=== PATIENT | female | born 1940 | race African-American/Black ===

== ENCOUNTER 2020-03-15 10:31 | Emergency (ER) | payer MEDICARE, OTHER ==
[~2020-03-15] VITALS: Ht 160 cm; Wt 66.0 kg
[~2020-03-15 10:31] MED LIST: AMLO10TA80 PO; ATEN50TA PO; CLON0.3T4; CYCL-108; HYDR12.54 PO; IBUP-779 PO; JARDIANCE; METF-414; NIFE-72
[2020-03-15] MEDS ORDERED: ACETAMINOPHEN 500MG TABLET PO ONE (11:15)
[2020-03-15] MEDS ORDERED: IBUPROFEN 600MG TABLET PO ONE (11:15)
[2020-03-15] MEDS ORDERED: TRAM50TA3 PO (12:33)
[2020-03-15 13:01] VITALS: BP 119/75
== END 2020-03-15 13:01 | disposition home or self-care (01) ==
LOC: ER 10:41
DX: S16.1XXA Strain of muscle, fascia and tendon at neck level, initial encounter (principal); M25.511 Pain in right shoulder; M62.838 Other muscle spasm; I10 Essential (primary) hypertension; E11.9 Type 2 diabetes mellitus without complications; W01.0XXA Fall on same level from slipping, tripping and stumbling without subsequent striking against object, initial encounter; Y93.01 Activity, walking, marching and hiking; Y92.018 Other place in single-family (private) house as the place of occurrence of the external cause; Z79.899 Other long term (current) drug therapy; Z79.84 Long term (current) use of oral hypoglycemic drugs
CPT/HCPCS: 72040; 73030; 99284

== ENCOUNTER 2021-07-30 11:33 | Inpatient (IN) | payer MEDICARE ==
[~2021-07-30] VITALS: Ht 180.3 cm; Wt 78.5 kg
[~2021-07-30 11:33] MED LIST changes: +AMLO5TAB4 MT; +GABA-529 PO; -JARDIANCE; -METF-414; +TRAM50TA3 PO
[2021-07-30] MEDS ORDERED: ACETAMINOPHEN 500MG TABLET PO ONE (15:15)
[2021-07-30 15:54] LABS: BASOPHILS % 1.1 % (0.0-2.0); EOSINOPHILS % 0.8 % (0.0-5.0); HEMATOCRIT. 37.4 % (36.0-48.0); HEMOGLOBIN. 12.5 g/dL (12.0-16.0); LYMPHOCYTES % 14.3 % (20.0-50.0); MEAN CORPUSCULAR HEMOGLOBIN 33.5 pg (28.0-32.0); MEAN CORPUSCULAR VOLUME 100.5 fL (81.0-99.0); MEAN PLATELET VOLUME 10.2 fl (7.4-10.4); MONOCYTES % 7.8 % (2.0-8.0); PLATELET 130 x1000/uL (130-400); RED BLOOD CELL COUNT 3.72 mill/uL (4.2-5.4)
[2021-07-30 16:01] LABS: CHLORIDE 111 mEq/L (98-107)
[2021-07-30] MEDS ORDERED: DOCUSATE SODIUM 100MG CAPSULE PO PRN (18:15)
[2021-07-30] MEDS ORDERED: ONDANSETRON HCL 4MG/2ML INJ IV PRN (18:15)
[2021-07-30] MEDS ORDERED: IPRATROPIUM/ALBUTEROL 0.5-3(2.5)MG/3ML NEB HHN PRN (18:15)
[2021-07-30] MEDS ORDERED: GUAIFENESIN 200MG/10ML SUGAR FREE UDC PO PRN (18:15)
[2021-07-30] MEDS ORDERED: MAGNESIUM/ALUMINUM HYDROXIDE/SIMETHICONE 30ML UDC PO PRN (18:15)
[2021-07-30] MEDS ORDERED: DIPHENHYDRAMINE 50MG/ML VIAL IV PRN (18:15)
[2021-07-30 18:43] LABS: CLARITY URINE CLEAR (CLEAR); COLOR URINE YELLOW (YELLOW); KETONES URINE NEGATIVE (NEGATIVE); LEUKOCYTE ESTERASE URINE NEGATIVE (NEGATIVE); NITRITE URINE NEGATIVE (NEGATIVE); OCCULT BLOOD URINE NEGATIVE (NEGATIVE); PH URINE 6.5 (4.5-8.0); PROTEIN URINE NEGATIVE (NEGATIVE); SPECIFIC GRAVITY URINE 1.015 (1.005-1.030); UROBILINOGEN URINE 0.2 E.U./dL (0.2-1.0)
[2021-07-30] MEDS: MORPHINE SULFATE 2 MG/ML CPJ (NOT FOR IM USE) IV PRN (20:56)
[2021-07-30 21:00] VITALS: BP 179/73
[2021-07-30] MEDS: CLONIDINE 0.1MG TABLET PO PRN (21:05)
[2021-07-31] MEDS: MORPHINE SULFATE 2 MG/ML CPJ (NOT FOR IM USE) IV PRN ×3 (01:15→11:04)
[2021-07-31 03:25] VITALS: BP 164/69
[2021-07-31 06:21] VITALS: BP 159/66
[2021-07-31 08:00] VITALS: BP 165/71
[2021-07-31] MEDS ORDERED: ENOXAPARIN 40MG/0.4ML SYR SUBCUT SCH (09:00)
[2021-07-31] MEDS ORDERED: HYDROCODONE/ACETAMINOPHEN 5/325MG TABLET PO PRN ×2 (10:45→11:00)
[2021-07-31 11:38] LABS: BASOPHILS % 0.8 % (0.0-2.0); EOSINOPHILS % 2.4 % (0.0-5.0); HEMATOCRIT. 32.5 % (36.0-48.0); HEMOGLOBIN. 10.8 g/dL (12.0-16.0); LYMPHOCYTES % 13.7 % (20.0-50.0); MEAN CORPUSCULAR HEMOGLOBIN 33.4 pg (28.0-32.0); MEAN CORPUSCULAR VOLUME 100.7 fL (81.0-99.0); MEAN PLATELET VOLUME 11.2 fl (7.4-10.4); MONOCYTES % 11.9 % (2.0-8.0); NEUTROPHILS % 71.2 % (40.0-76.0); PLATELET 103 x1000/uL (130-400); RED BLOOD CELL COUNT 3.23 mill/uL (4.2-5.4); RED CELL DISTRIBUTION WIDTH 14.1 % (11.6-14.6)
[2021-07-31 12:00] VITALS: BP 172/70
[2021-07-31 12:01] LABS: CHLORIDE 107 mEq/L (98-107)
[2021-07-31 12:16] LABS: CREATINE KINASE 85 IU/L (26-192); HDL CHOLESTEROL 60 mg/dL (40-59); LDL CHOLESTEROL 53 mg/dL (5-100)
[2021-07-31] MEDS: MAGNESIUM OXIDE 400MG TABLET PO SCH (12:21)
[2021-07-31] MEDS ORDERED: OXYCODONE HCL 5MG TABLET PO PRN ×2 (14:45→19:00)
[2021-07-31 16:00] VITALS: BP 177/75
[2021-07-31] MEDS: CLONIDINE 0.1MG TABLET PO PRN (17:12)
[2021-07-31] MEDS ORDERED: NALOXONE HCL 0.4MG/ML VIAL IV PRN (19:00)
[2021-07-31 20:00] VITALS: BP 146/63
[2021-08-01] VITALS (8 sets, daily range): BP systolic 133–162; BP diastolic 50–91
[2021-08-01] MEDS: OXYCODONE HCL 5MG TABLET PO PRN ×3 (05:06→20:39)
[2021-08-01] MEDS: CLONIDINE 0.1MG TABLET PO PRN (05:07)
[2021-08-01] MEDS: DIPHENHYDRAMINE 25MG CAPSULE PO PRN ×2 (08:26→14:36)
[2021-08-01] MEDS: MAGNESIUM OXIDE 400MG TABLET PO SCH (08:26)
[2021-08-01] MEDS ORDERED: THIAMINE HCL 100MG TABLET PO SCH (09:15)
[2021-08-01] MEDS ORDERED: FOLIC ACID 1MG TABLET PO SCH (09:15)
== END 2021-08-01 23:21 | DRG 563 ==
LOC: ER 11:33 → ENRESERV 17:50 → 6EST 20:21
PROVIDERS: ADMIT Specialist; ATTEND Specialist
PROC: 2W3QX1Z Immobilization of Right Lower Leg using Splint (ICD-10-PCS; principal; 2021-07-30)
DX: S82.401A Unspecified fracture of shaft of right fibula, initial encounter for closed fracture (principal); E44.0 Moderate protein-calorie malnutrition; I69.351 Hemiplegia and hemiparesis following cerebral infarction affecting right dominant side; S80.821A Blister (nonthermal), right lower leg, initial encounter; E11.9 Type 2 diabetes mellitus without complications; E83.42 Hypomagnesemia; E87.8 Other disorders of electrolyte and fluid balance, not elsewhere classified; I10 Essential (primary) hypertension; D64.9 Anemia, unspecified; M19.90 Unspecified osteoarthritis, unspecified site; G62.9 Polyneuropathy, unspecified; K74.60 Unspecified cirrhosis of liver; Z79.899 Other long term (current) drug therapy; Z82.49 Family history of ischemic heart disease and other diseases of the circulatory system; Z82.3 Family history of stroke; Z83.3 Family history of diabetes mellitus; Z87.891 Personal history of nicotine dependence; Z88.0 Allergy status to penicillin; Z68.37 Body mass index [BMI] 37.0-37.9, adult; Z91.81 History of falling; X58.XXXA Exposure to other specified factors, initial encounter; Y99.8 Other external cause status; W19.XXXA Unspecified fall, initial encounter; Y93.89 Activity, other specified; Y92.098 Other place in other non-institutional residence as the place of occurrence of the external cause; Z88.8 Allergy status to other drugs, medicaments and biological substances
CPT/HCPCS: 36415; 71045; 72170; 73590; 73600; 80053; 80061; 81003; 82550; 83735; 84443; 84484; 85025; 92610; 93005; 97162; 97166; 97530; 97535; 99285; J1200; J2270; Q0163

== ENCOUNTER 2021-08-01 23:10 | Inpatient (IN) | payer MEDICARE ==
[~2021-08-01] VITALS: Ht 182.9 cm; Wt 79.4 kg
[2021-08-01 23:30] VITALS: BP 148/63
[2021-08-02] MEDS ORDERED: GUAIFENESIN 200MG/10ML SUGAR FREE UDC PO PRN (00:15)
[2021-08-02] MEDS ORDERED: ONDANSETRON HCL 4MG TABLET PO PRN (00:15)
[2021-08-02] MEDS ORDERED: IPRATROPIUM/ALBUTEROL 0.5-3(2.5)MG/3ML NEB HHN PRN (00:15)
[2021-08-02] MEDS ORDERED: NALOXONE HCL 0.4 MG/ML 1ML VIAL IV PRN (00:15)
[2021-08-02] MEDS: DIPHENHYDRAMINE 25MG CAPSULE PO PRN ×5 (00:56→22:55)
[2021-08-02] MEDS: OXYCODONE HCL 5MG TABLET PO PRN ×2 (02:19→08:57)
[2021-08-02 06:24] LABS: BASOPHILS % 0.8 % (0.0-2.0); EOSINOPHILS % 4.6 % (0.0-5.0); HEMATOCRIT. 31.2 % (36.0-48.0); HEMOGLOBIN. 10.5 g/dL (12.0-16.0); LYMPHOCYTES % 15.3 % (20.0-50.0); MEAN CORPUSCULAR HEMOGLOBIN 33.8 pg (28.0-32.0); MEAN CORPUSCULAR VOLUME 100.7 fL (81.0-99.0); MEAN PLATELET VOLUME 11.2 fl (7.4-10.4); MONOCYTES % 9.5 % (2.0-8.0); NEUTROPHILS % 69.8 % (40.0-76.0); PLATELET 102 x1000/uL (130-400); RED CELL DISTRIBUTION WIDTH 13.6 % (11.6-14.6)
[2021-08-02 07:16] LABS: CHLORIDE 106 mEq/L (98-107)
[2021-08-02 08:00] VITALS: BP 158/72
[2021-08-02] MEDS: THIAMINE HCL 100MG TABLET PO SCH (08:56)
[2021-08-02] MEDS: FOLIC ACID 1MG TABLET PO SCH (08:56)
[2021-08-02] MEDS: MAGNESIUM/ALUMINUM HYDROXIDE/SIMETHICONE 30ML UDC PO PRN (08:56)
[2021-08-02] MEDS: MAGNESIUM OXIDE 400MG TABLET PO SCH (09:00)
[2021-08-02] MEDS ORDERED: DOCUSATE SODIUM 100MG CAPSULE PO SCH (09:00)
[2021-08-02] MEDS: HYDROCORTISONE 1% CREAM 30GM TOP SCH ×2 (11:50→17:52)
[2021-08-02] MEDS: TRAMADOL 50MG TABLET PO PRN ×3 (13:52→21:18)
[2021-08-02 20:00] VITALS: BP 166/75
[2021-08-03] MEDS: TRAMADOL 50MG TABLET PO PRN ×5 (04:12→22:50)
[2021-08-03 07:07] LABS: BASOPHILS % 0.6 % (0.0-2.0); EOSINOPHILS % 2.7 % (0.0-5.0); HEMATOCRIT. 29.8 % (36.0-48.0); MEAN CORPUSCULAR HEMOGLOBIN 33.6 pg (28.0-32.0); MEAN CORPUSCULAR VOLUME 99.9 fL (81.0-99.0); MEAN PLATELET VOLUME 10.8 fl (7.4-10.4); MONOCYTES % 10.9 % (2.0-8.0); NEUTROPHILS % 75.8 % (40.0-76.0); PLATELET 104 x1000/uL (130-400); RED BLOOD CELL COUNT 2.99 mill/uL (4.2-5.4); RED CELL DISTRIBUTION WIDTH 13.8 % (11.6-14.6)
[2021-08-03 07:33] LABS: CHLORIDE 104 mEq/L (98-107)
[2021-08-03 07:45] LABS: FERRITIN 175 ng/mL (10-291)
[2021-08-03 07:53] LABS: TOTAL IRON BINDING CAPACITY 328 ug/dL (250-450)
[2021-08-03 07:59] LABS: VITAMIN B12 SERUM 1026 pg/mL (211-911)
[2021-08-03 08:00] VITALS: BP 132/66
[2021-08-03] MEDS: FOLIC ACID 1MG TABLET PO SCH (08:13)
[2021-08-03] MEDS: THIAMINE HCL 100MG TABLET PO SCH (08:13)
[2021-08-03] MEDS: MAGNESIUM OXIDE 400MG TABLET PO SCH (08:13)
[2021-08-03] MEDS: HYDROCORTISONE 1% CREAM 30GM TOP SCH ×3 (08:19→16:18)
[2021-08-03 08:24] LABS: FOLIC ACID (FOLATE) SERUM > 20.00 ng/mL (>5.38)
[2021-08-03] MEDS: DIPHENHYDRAMINE 50MG CAPSULE PO PRN ×3 (12:39→22:51)
[2021-08-03] MEDS: LACTULOSE 20G/30ML UDC PO SCH ×3 (14:51→21:00)
[2021-08-03] MEDS: HYDROXYZINE 10 MG TABLET PO PRN (14:51)
[2021-08-03] MEDS: FERROUS SULFATE 325MG TABLET PO SCH (17:07)
[2021-08-03 20:00] VITALS: BP 161/75
[2021-08-04] MEDS: DIPHENHYDRAMINE 50MG CAPSULE PO PRN ×3 (06:01→20:33)
[2021-08-04] MEDS: TRAMADOL 50MG TABLET PO PRN ×3 (06:04→20:34)
[2021-08-04 08:00] VITALS: BP 149/67
[2021-08-04] MEDS: ASCORBIC ACID 500 MG TABLET PO SCH (08:59)
[2021-08-04] MEDS: THIAMINE HCL 100MG TABLET PO SCH (08:59)
[2021-08-04] MEDS: HYDROCORTISONE 1% CREAM 30GM TOP SCH ×3 (08:59→16:19)
[2021-08-04] MEDS: FOLIC ACID 1MG TABLET PO SCH (08:59)
[2021-08-04] MEDS: HYDROXYZINE 10 MG TABLET PO PRN (08:59)
[2021-08-04] MEDS: FERROUS SULFATE 325MG TABLET PO SCH ×3 (08:59→16:20)
[2021-08-04] MEDS: MAGNESIUM OXIDE 400MG TABLET PO SCH (08:59)
[2021-08-04] MEDS: LACTULOSE 20G/30ML UDC PO SCH ×2 (08:59→12:17)
[2021-08-04] MEDS: CLONIDINE 0.1MG TABLET PO PRN (09:58)
[2021-08-04 20:11] VITALS: BP 142/63
[2021-08-05] MEDS: TRAMADOL 50MG TABLET PO PRN ×4 (04:15→20:53)
[2021-08-05 08:00] VITALS: BP 163/68
[2021-08-05] MEDS: FOLIC ACID 1MG TABLET PO SCH (09:36)
[2021-08-05] MEDS: ASCORBIC ACID 500 MG TABLET PO SCH (09:36)
[2021-08-05] MEDS: THIAMINE HCL 100MG TABLET PO SCH (09:36)
[2021-08-05] MEDS: FERROUS SULFATE 325MG TABLET PO SCH ×3 (09:36→16:03)
[2021-08-05] MEDS: MAGNESIUM OXIDE 400MG TABLET PO SCH (09:36)
[2021-08-05] MEDS: DOCUSATE SODIUM 100MG CAPSULE PO PRN (09:36)
[2021-08-05] MEDS: HYDROCORTISONE 1% CREAM 30GM TOP SCH ×3 (09:39→16:04)
[2021-08-05] MEDS: DIPHENHYDRAMINE 50MG CAPSULE PO PRN ×2 (16:03→22:40)
[2021-08-05 20:00] VITALS: BP 155/54
[2021-08-06] MEDS: TRAMADOL 50MG TABLET PO PRN ×4 (00:56→18:12)
[2021-08-06 08:05] VITALS: BP 176/79
[2021-08-06] MEDS: FOLIC ACID 1MG TABLET PO SCH (09:00)
[2021-08-06] MEDS: HYDROCORTISONE 1% CREAM 30GM TOP SCH ×3 (09:00→17:00)
[2021-08-06] MEDS: ASCORBIC ACID 500 MG TABLET PO SCH (09:04)
[2021-08-06] MEDS: FERROUS SULFATE 325MG TABLET PO SCH ×3 (09:04→18:07)
[2021-08-06] MEDS: THIAMINE HCL 100MG TABLET PO SCH (09:04)
[2021-08-06] MEDS: MAGNESIUM OXIDE 400MG TABLET PO SCH (09:05)
[2021-08-06] MEDS: CLONIDINE 0.1MG TABLET PO PRN (18:13)
[2021-08-06 19:10] LABS: 25-HYDROXY VITAMIN D3 30 ng/mL (.)
[2021-08-06 19:48] VITALS: BP 153/62
[2021-08-07] MEDS: TRAMADOL 50MG TABLET PO PRN ×6 (04:49→21:32)
[2021-08-07] MEDS: DIPHENHYDRAMINE 50MG CAPSULE PO PRN ×3 (06:17→21:30)
[2021-08-07 08:21] VITALS: BP 143/64
[2021-08-07] MEDS: ASCORBIC ACID 500 MG TABLET PO SCH (08:42)
[2021-08-07] MEDS: THIAMINE HCL 100MG TABLET PO SCH (08:42)
[2021-08-07] MEDS: FERROUS SULFATE 325MG TABLET PO SCH ×3 (08:42→16:40)
[2021-08-07] MEDS: FOLIC ACID 1MG TABLET PO SCH (08:42)
[2021-08-07] MEDS: MAGNESIUM OXIDE 400MG TABLET PO SCH (08:48)
[2021-08-07] MEDS: HYDROCORTISONE 1% CREAM 30GM TOP SCH ×3 (08:48→16:40)
[2021-08-07] MEDS ORDERED: ERGOCALCIFEROL 50000UNITS CAPSULE PO SCH (16:15)
[2021-08-07 20:00] VITALS: BP 154/63
[2021-08-07] MEDS: MAGNESIUM/ALUMINUM HYDROXIDE/SIMETHICONE 30ML UDC PO PRN (21:30)
[2021-08-08] MEDS: TRAMADOL 50MG TABLET PO PRN ×5 (01:40→21:44)
[2021-08-08] MEDS: DIPHENHYDRAMINE 50MG CAPSULE PO PRN ×2 (07:31→16:03)
[2021-08-08 08:00] VITALS: BP 144/63
[2021-08-08] MEDS: HYDROCORTISONE 1% CREAM 30GM TOP SCH ×3 (08:46→16:04)
[2021-08-08] MEDS: ASCORBIC ACID 500 MG TABLET PO SCH (08:46)
[2021-08-08] MEDS: MAGNESIUM OXIDE 400MG TABLET PO SCH (08:46)
[2021-08-08] MEDS: THIAMINE HCL 100MG TABLET PO SCH (08:46)
[2021-08-08] MEDS: FOLIC ACID 1MG TABLET PO SCH (08:46)
[2021-08-08] MEDS: FERROUS SULFATE 325MG TABLET PO SCH ×3 (08:46→16:03)
[2021-08-08 20:00] VITALS: BP 139/82
[2021-08-08] MEDS ORDERED: METHYLPREDNISOLONE SOD SUCC 40 MG/ML VIAL IV NR (21:00)
[2021-08-09] MEDS: DIPHENHYDRAMINE 50MG CAPSULE PO PRN ×2 (00:23→15:47)
[2021-08-09] MEDS: TRAMADOL 50MG TABLET PO PRN ×4 (03:03→18:06)
[2021-08-09] MEDS: CLONIDINE 0.1MG TABLET PO PRN (04:43)
[2021-08-09 06:26] LABS: CHLORIDE 105 mEq/L (98-107)
[2021-08-09 06:43] LABS: HEMATOCRIT. 33.2 % (36.0-48.0); MEAN CORPUSCULAR HEMOGLOBIN 33.2 pg (28.0-32.0); MEAN CORPUSCULAR VOLUME 99.7 fL (81.0-99.0); MEAN PLATELET VOLUME 10.3 fl (7.4-10.4); PLATELET 180 x1000/uL (130-400); RED BLOOD CELL COUNT 3.33 mill/uL (4.2-5.4); RED CELL DISTRIBUTION WIDTH 13.9 % (11.6-14.6)
[2021-08-09 08:00] VITALS: BP 142/68
[2021-08-09] MEDS: HYDROCORTISONE 1% CREAM 30GM TOP SCH ×3 (09:00→18:07)
[2021-08-09] MEDS: FOLIC ACID 1MG TABLET PO SCH (09:41)
[2021-08-09] MEDS: ASCORBIC ACID 500 MG TABLET PO SCH (09:41)
[2021-08-09] MEDS: THIAMINE HCL 100MG TABLET PO SCH (09:41)
[2021-08-09] MEDS: FERROUS SULFATE 325MG TABLET PO SCH ×3 (09:41→18:03)
[2021-08-09] MEDS: DOCUSATE SODIUM 100MG CAPSULE PO PRN (09:41)
[2021-08-09] MEDS: MAGNESIUM OXIDE 400MG TABLET PO SCH (09:41)
[2021-08-09 14:25] LABS: PLATELET ESTIMATE NORMAL
[2021-08-09] MEDS ORDERED: POLYVINYL ALCOHOL OPHTH DROPS 15ML BOTHEYE PRN (18:00)
[2021-08-09 20:00] VITALS: BP 184/72
[2021-08-10] MEDS: DIPHENHYDRAMINE 50MG CAPSULE PO PRN ×3 (01:07→17:57)
[2021-08-10] MEDS: TRAMADOL 50MG TABLET PO PRN ×4 (04:14→17:56)
[2021-08-10 08:00] VITALS: BP 139/57
[2021-08-10] MEDS: FOLIC ACID 1MG TABLET PO SCH (09:16)
[2021-08-10] MEDS: ASCORBIC ACID 500 MG TABLET PO SCH (09:18)
[2021-08-10] MEDS: FERROUS SULFATE 325MG TABLET PO SCH ×3 (09:18→17:56)
[2021-08-10] MEDS: MAGNESIUM OXIDE 400MG TABLET PO SCH (09:18)
[2021-08-10] MEDS: HYDROCORTISONE 1% CREAM 30GM TOP SCH ×3 (11:30→17:57)
[2021-08-10] MEDS ORDERED: NALOXONE HCL 0.4MG/ML VIAL IV PRN (12:00)
[2021-08-10] MEDS: THIAMINE HCL 100MG TABLET PO SCH (17:57)
[2021-08-10 20:00] VITALS: BP 155/67
[2021-08-11 08:00] VITALS: BP 151/72
[2021-08-11] MEDS: THIAMINE HCL 100MG TABLET PO SCH (08:53)
[2021-08-11] MEDS: ASCORBIC ACID 500 MG TABLET PO SCH (08:53)
[2021-08-11] MEDS: MAGNESIUM OXIDE 400MG TABLET PO SCH (08:54)
[2021-08-11] MEDS: FOLIC ACID 1MG TABLET PO SCH (08:54)
[2021-08-11] MEDS: TRAMADOL 50MG TABLET PO PRN ×2 (08:54→15:24)
[2021-08-11] MEDS: FERROUS SULFATE 325MG TABLET PO SCH ×3 (08:54→17:00)
[2021-08-11] MEDS: HYDROCORTISONE 1% CREAM 30GM TOP SCH ×3 (09:00→17:00)
[2021-08-11] MEDS: CLONIDINE 0.1MG TABLET PO PRN ×2 (11:36→15:24)
[2021-08-11] MEDS: ATENOLOL 50 MG TABLET PO SCH (17:15)
[2021-08-11] MEDS: NIFEDIPINE XL 60MG TAB PO SCH (17:22)
[2021-08-11 20:00] VITALS: BP 110/52
[2021-08-12] MEDS: TRAMADOL 50MG TABLET PO PRN ×3 (00:49→13:17)
[2021-08-12] MEDS: DIPHENHYDRAMINE 50MG CAPSULE PO PRN (00:49)
[2021-08-12 08:00] VITALS: BP 152/50
[2021-08-12] MEDS: NIFEDIPINE XL 60MG TAB PO SCH (08:30)
[2021-08-12] MEDS: FERROUS SULFATE 325MG TABLET PO SCH ×2 (08:31→12:05)
[2021-08-12] MEDS: MAGNESIUM OXIDE 400MG TABLET PO SCH (08:31)
[2021-08-12] MEDS: ASCORBIC ACID 500 MG TABLET PO SCH (08:31)
[2021-08-12] MEDS: FOLIC ACID 1MG TABLET PO SCH (08:31)
[2021-08-12] MEDS: ATENOLOL 50 MG TABLET PO SCH (08:31)
[2021-08-12] MEDS: THIAMINE HCL 100MG TABLET PO SCH ×2 (08:32→08:34)
[2021-08-12] MEDS: HYDROCORTISONE 1% CREAM 30GM TOP SCH ×2 (08:33→12:05)
[2021-08-12 13:39] VITALS: BP 135/58
[2021-08-14] MEDS ORDERED: ERGOCALCIFEROL 50000UNITS CAPSULE PO SCH (09:00)
== END 2021-08-12 16:12 | DRG 562 ==
PROVIDERS: ADMIT Physical Medicine & Rehabilitation Spinal Cord Injury Medicine; ATTEND Family Medicine Adult Medicine
DX: S82.891A Other fracture of right lower leg, initial encounter for closed fracture (principal); E43 Unspecified severe protein-calorie malnutrition; I69.351 Hemiplegia and hemiparesis following cerebral infarction affecting right dominant side; F10.20 Alcohol dependence, uncomplicated; K74.60 Unspecified cirrhosis of liver; I10 Essential (primary) hypertension; D64.9 Anemia, unspecified; Z87.891 Personal history of nicotine dependence; R53.81 Other malaise; E11.42 Type 2 diabetes mellitus with diabetic polyneuropathy; F41.9 Anxiety disorder, unspecified; F32.A Depression, unspecified; K76.0 Fatty (change of) liver, not elsewhere classified; E55.9 Vitamin D deficiency, unspecified; E61.1 Iron deficiency; S82.401A Unspecified fracture of shaft of right fibula, initial encounter for closed fracture; S90.821A Blister (nonthermal), right foot, initial encounter; W18.39XA Other fall on same level, initial encounter; Z20.822 Contact with and (suspected) exposure to COVID-19; M81.0 Age-related osteoporosis without current pathological fracture; Z82.3 Family history of stroke; Z82.49 Family history of ischemic heart disease and other diseases of the circulatory system; Z83.3 Family history of diabetes mellitus; Z68.23 Body mass index [BMI] 23.0-23.9, adult; Z88.0 Allergy status to penicillin; Z88.8 Allergy status to other drugs, medicaments and biological substances; Z88.5 Allergy status to narcotic agent; Z79.899 Other long term (current) drug therapy; Y93.89 Activity, other specified; Y92.89 Other specified places as the place of occurrence of the external cause; Y99.8 Other external cause status; M79.609 Pain in unspecified limb; Z86.69 Personal history of other diseases of the nervous system and sense organs
CPT/HCPCS: 36415; 80048; 80053; 82306; 82607; 82728; 82746; 83540; 83550; 84134; 84443; 85025; 87426; 92523; 92610; 93970; 97110; 97112; 97150; 97162; 97166; 97530; 97535; C1893; J2920; Q0163

== ENCOUNTER 2021-10-18 14:20 | Emergency (ER) | payer MEDICARE ==
[~2021-10-18] VITALS: Ht 167.6 cm; Wt 82.0 kg
[2021-10-18] MEDS ORDERED: SODIUM CHLORIDE 0.9% 250 ML IV ONE (14:45)
[2021-10-18 15:00] LABS: BASOPHILS % 1.2 % (0.0-2.0); EOSINOPHILS % 4.8 % (0.0-5.0); HEMOGLOBIN. 12.5 g/dL (12.0-16.0); MEAN CORPUSCULAR HEMOGLOBIN 31.2 pg (28.0-32.0); MEAN CORPUSCULAR VOLUME 94.9 fL (81.0-99.0); MEAN PLATELET VOLUME 9.9 fl (7.4-10.4); MONOCYTES % 11.2 % (2.0-8.0); NEUTROPHILS % 53.8 % (40.0-76.0); PLATELET 123 x1000/uL (130-400); RED BLOOD CELL COUNT 4.01 mill/uL (4.2-5.4); RED CELL DISTRIBUTION WIDTH 15.2 % (11.6-14.6)
[2021-10-18 15:09] LABS: CHLORIDE 111 mEq/L (98-107)
[2021-10-18] MEDS ORDERED: POTASSIUM CHLORIDE 20MEQ TABLET SR PO ONE (16:30)
[2021-10-18] MEDS ORDERED: MAGNESIUM 2 G PREMIX 50 ML IV ONE (17:45)
[2021-10-18 18:13] VITALS: BP 166/90
[2021-10-18 18:30] LABS: CLARITY URINE CLEAR (CLEAR); COLOR URINE YELLOW (YELLOW); KETONES URINE NEGATIVE (NEGATIVE); LEUKOCYTE ESTERASE URINE NEGATIVE (NEGATIVE); NITRITE URINE NEGATIVE (NEGATIVE); OCCULT BLOOD URINE NEGATIVE (NEGATIVE); PROTEIN URINE NEGATIVE (NEGATIVE); SPECIFIC GRAVITY URINE 1.013 (1.005-1.030); UROBILINOGEN URINE 0.2 E.U./dL (0.2-1.0)
== END 2021-10-18 22:10 | disposition left against medical advice (07) ==
LOC: ER 14:34 → EDBEDREQ 17:21 → EDBEDREQTM 17:21 → ENRESERV 20:17 → CANRESERV 20:17 → ER 22:10 → CANBEDREQ 22:34
DX: R51.9 Headache, unspecified (principal); I10 Essential (primary) hypertension; Z86.73 Personal history of transient ischemic attack (TIA), and cerebral infarction without residual deficits; E87.8 Other disorders of electrolyte and fluid balance, not elsewhere classified; E11.9 Type 2 diabetes mellitus without complications; Z79.899 Other long term (current) drug therapy
CPT/HCPCS: 36415; 70450; 71045; 80053; 81003; 83690; 83735; 83880; 84443; 84484; 85025; 93005; 96361; 96365; 99291; J3475; J7050

== ENCOUNTER → 2022-05-26 | Day surgery (SDC) | payer MEDICARE, MEDICAID ==
[~2022-05-26] VITALS: Ht 177.8 cm; Wt 88.5 kg
[~2022-05-26] MED LIST changes: +ACETAMINOPHEN 325MG TABLET PO NR; +ACETAMINOPHEN 325MG TABLET PO ONE; +ACETYLCHOLINE CHLORIDE INTRAOCULAR SOLUTION 1:100 ELECTROLYTE DILUENT IO ONE; +ASPI-1497 PO; +ATOR40TA70 PO; +BALANCED SALT IRRIG SOLN 15ML ONE; +BALANCED SALT IRRIG SOLN COMB1 500ML OP NR; +BUPIVACAINE HCL/PF 0.75% (7.5MG/ML) 10ML ONE; +CLON0.1T PO; +DOCU-150 PO; +FAMO-135 PO; +FENTANYL CITRATE/PF 50MCG/ML 2ML VIAL ONE; +HYALURONATE SODIUM 10 MG/ML 0.55ML SYRINGE IO ONE; +HYDR-4005 PO; +HYDR-4134 PO; +HYDRALAZINE 20MG/ML VIAL IV NR; +IPRATROPIUM/ALBUTEROL 0.5-3(2.5)MG/3ML NEB HHN NR; +LIDOCAINE HCL 2%/EPINEPHRINE 1:100,000 20 ML VIAL INFIL ONE; +LORA10TA7 PO; +LOSA50TA41 PO; +MELA3TAB40 PO; +METHYLPREDNISOLONE SOD SUCC 40 MG/ML VIAL ONE; +MIDAZOLAM HCL 2 MG/2 ML VIAL ONE; +MIDAZOLAM HCL 5 MG/5 ML VIAL ONE; +MOM PO; +MULT-1146 PO; +PANT40TA51 PO; +PHENYLEPHRINE 2.5% OPHTH 15 DROP/ML BOTTLE LEFTEYE SCH; +POLY15DR31 EACHEYE; +PROPOFOL 200MG/20ML VIAL IV ONE; +SODIUM CHLORIDE 0.9% 1,000 ML IV SCH; +TETRACAINE 0.5% OPHTH DROPS 4ML ONE; +TOBRAMYCIN/DEXAMETHASONE OPTH DROPS 2.5ML ONE; +TOPUD PO; +TRIAMCINOLONE ACETONIDE 40MG/ML 1ML VIAL ONE; +TROPICAMIDE 1% OPHTH DROPS 15ML LEFTEYE SCH
== END | disposition home or self-care (01) ==
LOC: OR 07:25
PROVIDERS: ATTEND Ophthalmology
DX: E11.36 Type 2 diabetes mellitus with diabetic cataract (principal); H25.89 Other age-related cataract; I10 Essential (primary) hypertension; E78.00 Pure hypercholesterolemia, unspecified; K21.9 Gastro-esophageal reflux disease without esophagitis; M19.90 Unspecified osteoarthritis, unspecified site; D50.9 Iron deficiency anemia, unspecified; Z79.82 Long term (current) use of aspirin; Z79.899 Other long term (current) drug therapy; Z98.890 Other specified postprocedural states; Z86.73 Personal history of transient ischemic attack (TIA), and cerebral infarction without residual deficits
CPT/HCPCS: 66984; 82962; 94640; J0360; J2250; J2704; J2920; J3010; J3301; J3490; V2632; Z7610

== ENCOUNTER 2022-07-27 17:38 | Inpatient (IN) | payer MEDICARE, MEDICAID ==
[~2022-07-27] VITALS: Ht 182.9 cm; Wt 88.5 kg
[2022-07-27 17:37] VITALS: BP 129/77; PULSE 77; RESP 18; TEMP 97.8
[~2022-07-27 17:38] MED LIST changes: -ACETAMINOPHEN 325MG TABLET PO NR; -ACETAMINOPHEN 325MG TABLET PO ONE; -ACETYLCHOLINE CHLORIDE INTRAOCULAR SOLUTION 1:100 ELECTROLYTE DILUENT IO ONE; -AMLO5TAB4 MT; -ASPI-1497 PO; -ATEN50TA PO; -BALANCED SALT IRRIG SOLN 15ML ONE; -BALANCED SALT IRRIG SOLN COMB1 500ML OP NR; -BUPIVACAINE HCL/PF 0.75% (7.5MG/ML) 10ML ONE; -CLON0.1T PO; -CLON0.3T4; -CYCL-108; -FENTANYL CITRATE/PF 50MCG/ML 2ML VIAL ONE; -HYALURONATE SODIUM 10 MG/ML 0.55ML SYRINGE IO ONE; -HYDR12.54 PO; -HYDRALAZINE 20MG/ML VIAL IV NR; -IBUP-779 PO; -IPRATROPIUM/ALBUTEROL 0.5-3(2.5)MG/3ML NEB HHN NR; -LIDOCAINE HCL 2%/EPINEPHRINE 1:100,000 20 ML VIAL INFIL ONE; -METHYLPREDNISOLONE SOD SUCC 40 MG/ML VIAL ONE; -MIDAZOLAM HCL 2 MG/2 ML VIAL ONE; -MIDAZOLAM HCL 5 MG/5 ML VIAL ONE; -NIFE-72; -PANT40TA51 PO; -PHENYLEPHRINE 2.5% OPHTH 15 DROP/ML BOTTLE LEFTEYE SCH; -PROPOFOL 200MG/20ML VIAL IV ONE; -SODIUM CHLORIDE 0.9% 1,000 ML IV SCH; -TETRACAINE 0.5% OPHTH DROPS 4ML ONE; -TOBRAMYCIN/DEXAMETHASONE OPTH DROPS 2.5ML ONE; -TRIAMCINOLONE ACETONIDE 40MG/ML 1ML VIAL ONE; -TROPICAMIDE 1% OPHTH DROPS 15ML LEFTEYE SCH
[2022-07-27] MEDS ORDERED: LACTULOSE 20G/30ML UDC PO PRN (18:45)
[2022-07-27 20:00] VITALS: BP 113/80; PULSE 76; RESP 20; TEMP 97.6
[2022-07-27] MEDS ORDERED: CLONIDINE 0.1MG TABLET PO PRN (20:30)
[2022-07-27] MEDS ORDERED: DIPHENHYDRAMINE 50MG CAPSULE PO PRN (20:30)
[2022-07-27] MEDS ORDERED: NALOXONE HCL 0.4 MG/ML 1ML VIAL IM PRN (20:30)
[2022-07-27] MEDS ORDERED: ACETAMINOPHEN 325MG TABLET PO PRN (20:30)
[2022-07-27] MEDS ORDERED: NALOXONE HCL 0.4MG/ML VIAL IV PRN (21:00)
[2022-07-27] MEDS ORDERED: FERR325T6 PO (21:34)
[2022-07-27] MEDS ORDERED: IBUP-2029 PO (21:35)
[2022-07-27] MEDS ORDERED: AMLO5TAB88 PO (21:36)
[2022-07-27] MEDS ORDERED: ATEN50TA PO (21:41)
[2022-07-27] MEDS: LOSARTAN POTASSIUM 50 MG TABLET PO SCH (21:41)
[2022-07-27] MEDS ORDERED: GABA-532 PO (21:42)
[2022-07-27] MEDS ORDERED: HYDR25TA PO (21:43)
[2022-07-28 06:15] LABS: BASOPHILS % 0.7 % (0.0-2.0); HEMATOCRIT. 36.1 % (36.0-48.0); HEMOGLOBIN. 11.9 g/dL (12.0-16.0); MEAN CORPUSCULAR HEMOGLOBIN 30.4 pg (28.0-32.0); MEAN CORPUSCULAR VOLUME 91.8 fL (81.0-99.0); MEAN PLATELET VOLUME 9.7 fl (7.4-10.4); MONOCYTES % 8.5 % (2.0-8.0); NEUTROPHILS % 62.8 % (40.0-76.0); PLATELET 129 x1000/uL (130-400); RED BLOOD CELL COUNT 3.93 mill/uL (4.2-5.4); RED CELL DISTRIBUTION WIDTH 15.2 % (11.6-14.6)
[2022-07-28 06:56] LABS: CHLORIDE 113 mEq/L (98-107)
[2022-07-28 08:00] VITALS: BP 169/79; PULSE 97; RESP 18; TEMP 97.9
[2022-07-28] MEDS: GABAPENTIN 300MG CAPSULE PO SCH ×3 (09:04→16:37)
[2022-07-28] MEDS: FAMOTIDINE 20MG TABLET PO SCH ×2 (09:05→21:54)
[2022-07-28] MEDS: AMLODIPINE 10MG TABLET PO SCH (09:05)
[2022-07-28] MEDS: HYDRALAZINE HCL 25MG TABLET PO SCH ×3 (09:05→16:38)
[2022-07-28] MEDS: HYDROCODONE/ACETAMINOPHEN 5/325MG TABLET PO PRN ×3 (09:14→22:20)
[2022-07-28] MEDS: LOSARTAN POTASSIUM 50 MG TABLET PO SCH (16:38)
[2022-07-28 20:00] VITALS: BP 148/55; PULSE 90; RESP 20; TEMP 97.8
[2022-07-28] MEDS: LORATADINE 10MG TABLET PO SCH (21:54)
[2022-07-28] MEDS: ATORVASTATIN CALCIUM 40MG TABLET PO SCH (21:54)
[2022-07-29] MEDS: HYDROCODONE/ACETAMINOPHEN 5/325MG TABLET PO PRN (05:14)
[2022-07-29 06:45] LABS: BASOPHILS % 0.8 % (0.0-2.0); EOSINOPHILS % 4.8 % (0.0-5.0); HEMATOCRIT. 33.4 % (36.0-48.0); HEMOGLOBIN. 11.3 g/dL (12.0-16.0); LYMPHOCYTES % 25.4 % (20.0-50.0); MEAN CORPUSCULAR HEMOGLOBIN 30.7 pg (28.0-32.0); MEAN CORPUSCULAR VOLUME 90.8 fL (81.0-99.0); MEAN PLATELET VOLUME 9.6 fl (7.4-10.4); MONOCYTES % 9.5 % (2.0-8.0); NEUTROPHILS % 59.5 % (40.0-76.0); PLATELET 118 x1000/uL (130-400); RED BLOOD CELL COUNT 3.68 mill/uL (4.2-5.4); RED CELL DISTRIBUTION WIDTH 15.2 % (11.6-14.6)
[2022-07-29 06:58] LABS: CHLORIDE 111 mEq/L (98-107)
[2022-07-29 07:14] LABS: TOTAL IRON BINDING CAPACITY 350 ug/dL (250-450)
[2022-07-29 07:52] LABS: VITAMIN B12 SERUM 401 pg/mL (211-911)
[2022-07-29 08:00] VITALS: BP 141/64; PULSE 82; RESP 18; TEMP 97.4
[2022-07-29 08:22] LABS: FERRITIN 87 ng/mL (10-291)
[2022-07-29] MEDS: GABAPENTIN 300MG CAPSULE PO SCH ×3 (09:00→18:30)
[2022-07-29] MEDS: HYDRALAZINE HCL 25MG TABLET PO SCH ×3 (09:00→18:30)
[2022-07-29] MEDS: FAMOTIDINE 20MG TABLET PO SCH ×2 (09:00→20:50)
[2022-07-29] MEDS: AMLODIPINE 10MG TABLET PO SCH (09:00)
[2022-07-29] MEDS: LOSARTAN POTASSIUM 50 MG TABLET PO SCH ×2 (09:00→18:30)
[2022-07-29] MEDS: LORATADINE 10MG TABLET PO SCH (09:00)
[2022-07-29] MEDS ORDERED: DIPHENHYDRAMINE 25MG CAPSULE PO PRN (09:36)
[2022-07-29] MEDS ORDERED: ACETAMINOPHEN 325MG TABLET PO PRN (09:45)
[2022-07-29] MEDS: CYANOCOBALAMIN 1000MCG/ML VIAL IM SCH (11:00)
[2022-07-29] MEDS: FERROUS SULFATE 325MG TABLET PO SCH ×2 (13:44→18:30)
[2022-07-29 20:00] VITALS: BP 128/55; PULSE 87; RESP 18; TEMP 97.3
[2022-07-29] MEDS: ATORVASTATIN CALCIUM 40MG TABLET PO SCH (20:50)
[2022-07-30 08:00] VITALS: BP 131/67; PULSE 79; RESP 18; TEMP 98.3
[2022-07-30] MEDS: GABAPENTIN 300MG CAPSULE PO SCH ×3 (09:03→17:41)
[2022-07-30] MEDS: FOLIC ACID 1MG TABLET PO SCH (09:03)
[2022-07-30] MEDS: LOSARTAN POTASSIUM 50 MG TABLET PO SCH ×2 (09:03→17:40)
[2022-07-30] MEDS: FERROUS SULFATE 325MG TABLET PO SCH ×3 (09:04→17:40)
[2022-07-30] MEDS: AMLODIPINE 10MG TABLET PO SCH (09:04)
[2022-07-30] MEDS: HYDRALAZINE HCL 25MG TABLET PO SCH ×3 (09:04→17:40)
[2022-07-30] MEDS: HYDROCODONE/ACETAMINOPHEN 5/325MG TABLET PO PRN ×2 (09:04→21:20)
[2022-07-30] MEDS: ASCORBIC ACID 500 MG TABLET PO SCH (09:04)
[2022-07-30] MEDS: FAMOTIDINE 20MG TABLET PO SCH ×2 (09:04→21:09)
[2022-07-30] MEDS: LORATADINE 10MG TABLET PO SCH (09:05)
[2022-07-30] MEDS: CYANOCOBALAMIN 1000MCG/ML VIAL IM SCH (09:05)
[2022-07-30] MEDS ORDERED: LIDOCAINE HCL 1% 10 MG/ML 10ML VIAL IJ NR (15:00)
[2022-07-30] MEDS ORDERED: TRIAMCINOLONE ACETONIDE 40MG/ML 1ML VIAL IM NR (15:00)
[2022-07-30 19:57] VITALS: BP 140/48; PULSE 92; RESP 20; TEMP 97.6
[2022-07-30] MEDS: ATORVASTATIN CALCIUM 40MG TABLET PO SCH (21:09)
[2022-07-31 08:00] VITALS: BP 150/66; PULSE 89; RESP 17; TEMP 97.8
[2022-07-31] MEDS: CYANOCOBALAMIN 1000MCG/ML VIAL IM SCH (08:33)
[2022-07-31] MEDS: FAMOTIDINE 20MG TABLET PO SCH ×2 (08:34→21:31)
[2022-07-31] MEDS: LORATADINE 10MG TABLET PO SCH (08:34)
[2022-07-31] MEDS: FERROUS SULFATE 325MG TABLET PO SCH ×3 (08:34→17:50)
[2022-07-31] MEDS: GABAPENTIN 300MG CAPSULE PO SCH ×3 (08:34→17:49)
[2022-07-31] MEDS: HYDROCODONE/ACETAMINOPHEN 5/325MG TABLET PO PRN ×2 (08:34→21:38)
[2022-07-31] MEDS: FOLIC ACID 1MG TABLET PO SCH (08:35)
[2022-07-31] MEDS: ASCORBIC ACID 500 MG TABLET PO SCH (08:35)
[2022-07-31] MEDS: HYDRALAZINE HCL 25MG TABLET PO SCH ×3 (09:32→17:50)
[2022-07-31] MEDS: LOSARTAN POTASSIUM 50 MG TABLET PO SCH ×2 (09:32→17:50)
[2022-07-31] MEDS: AMLODIPINE 10MG TABLET PO SCH (09:32)
[2022-07-31 20:00] VITALS: BP 149/66; PULSE 91; RESP 18; TEMP 98.2
[2022-07-31] MEDS: ATORVASTATIN CALCIUM 40MG TABLET PO SCH (21:31)
[2022-07-31] MEDS ORDERED: ZOLPIDEM TARTRATE 5MG TABLET PO PRN (23:30)
[2022-08-01 08:23] VITALS: BP 154/64; PULSE 75; RESP 18; TEMP 98
[2022-08-01] MEDS: ASCORBIC ACID 500 MG TABLET PO SCH (09:00)
[2022-08-01] MEDS: HYDROCODONE/ACETAMINOPHEN 5/325MG TABLET PO PRN (10:02)
[2022-08-01] MEDS: CYANOCOBALAMIN 1000MCG/ML VIAL IM SCH (10:02)
[2022-08-01] MEDS: GABAPENTIN 300MG CAPSULE PO SCH ×3 (10:07→18:42)
[2022-08-01] MEDS: AMLODIPINE 10MG TABLET PO SCH (10:07)
[2022-08-01] MEDS: FAMOTIDINE 20MG TABLET PO SCH ×2 (10:07→20:41)
[2022-08-01] MEDS: FOLIC ACID 1MG TABLET PO SCH (10:07)
[2022-08-01] MEDS: LOSARTAN POTASSIUM 50 MG TABLET PO SCH ×2 (10:07→18:42)
[2022-08-01] MEDS: LORATADINE 10MG TABLET PO SCH (10:07)
[2022-08-01] MEDS: HYDRALAZINE HCL 25MG TABLET PO SCH ×2 (10:07→13:00)
[2022-08-01] MEDS: FERROUS SULFATE 325MG TABLET PO SCH ×3 (10:08→18:42)
[2022-08-01] MEDS: HYDRALAZINE HCL 50MG TABLET PO SCH (18:41)
[2022-08-01 20:00] VITALS: BP 134/53; PULSE 78; RESP 20; TEMP 98.4
[2022-08-01] MEDS: ATORVASTATIN CALCIUM 40MG TABLET PO SCH (20:36)
[2022-08-02] MEDS: HYDROCODONE/ACETAMINOPHEN 5/325MG TABLET PO PRN ×3 (00:13→22:42)
[2022-08-02] MEDS ORDERED: NALOXONE HCL 0.4MG/ML VIAL IV PRN (00:15)
[2022-08-02 08:00] VITALS: BP 149/57; PULSE 79; RESP 18; TEMP 97.3
[2022-08-02] MEDS: LORATADINE 10MG TABLET PO SCH (09:00)
[2022-08-02] MEDS: FAMOTIDINE 20MG TABLET PO SCH ×2 (10:15→21:53)
[2022-08-02] MEDS: FERROUS SULFATE 325MG TABLET PO SCH ×3 (10:16→17:57)
[2022-08-02] MEDS: HYDRALAZINE HCL 50MG TABLET PO SCH ×3 (10:16→17:57)
[2022-08-02] MEDS: AMLODIPINE 10MG TABLET PO SCH (10:16)
[2022-08-02] MEDS: ASCORBIC ACID 500 MG TABLET PO SCH (10:16)
[2022-08-02] MEDS: LOSARTAN POTASSIUM 50 MG TABLET PO SCH ×2 (10:16→17:57)
[2022-08-02] MEDS: FOLIC ACID 1MG TABLET PO SCH (10:17)
[2022-08-02] MEDS: GABAPENTIN 300MG CAPSULE PO SCH ×3 (10:17→17:58)
[2022-08-02] MEDS: CYANOCOBALAMIN 1000MCG/ML VIAL IM SCH (10:18)
[2022-08-02 19:47] VITALS: BP 138/55; PULSE 74; RESP 20; TEMP 97.2
[2022-08-02] MEDS: ATORVASTATIN CALCIUM 40MG TABLET PO SCH (21:53)
[2022-08-03 08:00] VITALS: BP 173/81; PULSE 80; RESP 18; TEMP 97.3
[2022-08-03] MEDS: HYDRALAZINE HCL 50MG TABLET PO SCH ×3 (09:54→16:56)
[2022-08-03] MEDS: ASCORBIC ACID 500 MG TABLET PO SCH (09:55)
[2022-08-03] MEDS: GABAPENTIN 300MG CAPSULE PO SCH ×3 (09:55→16:57)
[2022-08-03] MEDS: FAMOTIDINE 20MG TABLET PO SCH ×2 (09:55→21:37)
[2022-08-03] MEDS: LORATADINE 10MG TABLET PO SCH (09:55)
[2022-08-03] MEDS: FERROUS SULFATE 325MG TABLET PO SCH ×3 (09:55→16:56)
[2022-08-03] MEDS: FOLIC ACID 1MG TABLET PO SCH (09:55)
[2022-08-03] MEDS: AMLODIPINE 10MG TABLET PO SCH (09:55)
[2022-08-03] MEDS: LOSARTAN POTASSIUM 50 MG TABLET PO SCH ×2 (09:55→16:57)
[2022-08-03] MEDS: HYDROCODONE/ACETAMINOPHEN 5/325MG TABLET PO PRN (16:57)
[2022-08-03 19:53] VITALS: BP 154/63; PULSE 85; RESP 20; TEMP 96.9
[2022-08-03] MEDS: ATORVASTATIN CALCIUM 40MG TABLET PO SCH (21:37)
[2022-08-04] MEDS: HYDROCODONE/ACETAMINOPHEN 5/325MG TABLET PO PRN ×2 (02:43→15:01)
[2022-08-04 06:44] LABS: BASOPHILS % 0.4 % (0.0-2.0); HEMATOCRIT. 34.9 % (36.0-48.0); HEMOGLOBIN. 11.6 g/dL (12.0-16.0); LYMPHOCYTES % 16.3 % (20.0-50.0); MEAN CORPUSCULAR HEMOGLOBIN 30.3 pg (28.0-32.0); MEAN CORPUSCULAR VOLUME 90.9 fL (81.0-99.0); MEAN PLATELET VOLUME 10.3 fl (7.4-10.4); MONOCYTES % 7.8 % (2.0-8.0); NEUTROPHILS % 74.5 % (40.0-76.0); PLATELET 136 x1000/uL (130-400); RED BLOOD CELL COUNT 3.84 mill/uL (4.2-5.4)
[2022-08-04 07:03] LABS: CHLORIDE 111 mEq/L (98-107)
[2022-08-04 08:00] VITALS: BP 168/65; PULSE 87; RESP 18; TEMP 98.4
[2022-08-04] MEDS: ASCORBIC ACID 500 MG TABLET PO SCH (09:00)
[2022-08-04] MEDS: FERROUS SULFATE 325MG TABLET PO SCH ×3 (10:46→19:00)
[2022-08-04] MEDS: FOLIC ACID 1MG TABLET PO SCH (10:46)
[2022-08-04] MEDS: FAMOTIDINE 20MG TABLET PO SCH ×2 (10:46→20:22)
[2022-08-04] MEDS: GABAPENTIN 300MG CAPSULE PO SCH ×3 (10:47→19:00)
[2022-08-04] MEDS: HYDRALAZINE HCL 50MG TABLET PO SCH ×3 (10:47→19:01)
[2022-08-04] MEDS: LOSARTAN POTASSIUM 50 MG TABLET PO SCH ×2 (10:47→17:00)
[2022-08-04] MEDS: AMLODIPINE 10MG TABLET PO SCH (10:48)
[2022-08-04] MEDS: LORATADINE 10MG TABLET PO SCH (10:48)
[2022-08-04] MEDS: DICLOFENAC SODIUM 1% GEL 50GM TOP SCH ×3 (13:00→21:00)
[2022-08-04 20:00] VITALS: BP 94/58; PULSE 87; RESP 19; TEMP 98
[2022-08-04] MEDS: MELATONIN 3MG TABLET PO SCH (20:22)
[2022-08-04] MEDS: ATORVASTATIN CALCIUM 40MG TABLET PO SCH (20:22)
[2022-08-05 08:00] VITALS: BP 141/67; PULSE 80; RESP 18; TEMP 97.7
[2022-08-05] MEDS: LIDOCAINE 5% PATCH TOP SCH ×2 (09:00→09:16)
[2022-08-05] MEDS: FERROUS SULFATE 325MG TABLET PO SCH ×3 (09:14→18:05)
[2022-08-05] MEDS: LORATADINE 10MG TABLET PO SCH (09:14)
[2022-08-05] MEDS: ASCORBIC ACID 500 MG TABLET PO SCH (09:14)
[2022-08-05] MEDS: FAMOTIDINE 20MG TABLET PO SCH ×2 (09:14→21:12)
[2022-08-05] MEDS: FOLIC ACID 1MG TABLET PO SCH (09:14)
[2022-08-05] MEDS: LOSARTAN POTASSIUM 50 MG TABLET PO SCH ×2 (09:14→18:05)
[2022-08-05] MEDS: GABAPENTIN 300MG CAPSULE PO SCH ×3 (09:14→18:05)
[2022-08-05] MEDS: HYDRALAZINE HCL 50MG TABLET PO SCH ×3 (09:15→18:06)
[2022-08-05] MEDS: AMLODIPINE 10MG TABLET PO SCH (09:15)
[2022-08-05] MEDS: HYDROCODONE/ACETAMINOPHEN 5/325MG TABLET PO PRN (09:32)
[2022-08-05 20:00] VITALS: BP 149/59; PULSE 82; RESP 20; TEMP 97.8
[2022-08-05] MEDS: DICLOFENAC SODIUM 1% GEL 50GM TOP SCH (21:00)
[2022-08-05] MEDS: ATORVASTATIN CALCIUM 40MG TABLET PO SCH (21:13)
[2022-08-05] MEDS: MELATONIN 3MG TABLET PO SCH (21:13)
[2022-08-06 08:00] VITALS: BP 130/58; PULSE 74; RESP 20; TEMP 97.5
[2022-08-06] MEDS: ASCORBIC ACID 500 MG TABLET PO SCH (09:00)
[2022-08-06] MEDS: LOSARTAN POTASSIUM 50 MG TABLET PO SCH ×2 (09:00→17:43)
[2022-08-06] MEDS: DICLOFENAC SODIUM 1% GEL 50GM TOP SCH ×4 (09:00→21:00)
[2022-08-06] MEDS: FERROUS SULFATE 325MG TABLET PO SCH ×3 (09:00→17:43)
[2022-08-06] MEDS: LIDOCAINE 5% PATCH TOP SCH (09:00)
[2022-08-06] MEDS: GABAPENTIN 300MG CAPSULE PO SCH ×3 (09:00→17:43)
[2022-08-06] MEDS: FOLIC ACID 1MG TABLET PO SCH (09:00)
[2022-08-06] MEDS: HYDRALAZINE HCL 50MG TABLET PO SCH ×3 (09:01→17:44)
[2022-08-06] MEDS: FAMOTIDINE 20MG TABLET PO SCH ×2 (09:01→21:25)
[2022-08-06] MEDS: AMLODIPINE 10MG TABLET PO SCH (09:01)
[2022-08-06] MEDS: LORATADINE 10MG TABLET PO SCH (09:01)
[2022-08-06] MEDS ORDERED: BUPIVACAINE HCL 0.25% (2.5MG/ML) 50ML IR NR (12:30)
[2022-08-06] MEDS ORDERED: ETHYL CHLORIDE CAN TOP NR (12:30)
[2022-08-06] MEDS ORDERED: LIDOCAINE HCL 1% 10 MG/ML 5ML VIAL INJ NR (12:30)
[2022-08-06] MEDS ORDERED: TRIAMCINOLONE ACETONIDE 40MG/ML 1ML VIAL IM NR (12:30)
[2022-08-06] MEDS ORDERED: CYCLOBENZAPRINE 10MG TABLET PO NR (12:45)
[2022-08-06] MEDS: HYDROCODONE/ACETAMINOPHEN 5/325MG TABLET PO PRN (15:18)
[2022-08-06 20:00] VITALS: BP 147/57; RESP 18; TEMP 97.9
[2022-08-06] MEDS: ATORVASTATIN CALCIUM 40MG TABLET PO SCH (21:24)
[2022-08-06] MEDS: MELATONIN 3MG TABLET PO SCH (21:26)
[2022-08-07] MEDS: HYDROCODONE/ACETAMINOPHEN 5/325MG TABLET PO PRN ×2 (03:11→09:30)
[2022-08-07 08:00] VITALS: BP 121/91; PULSE 70; RESP 18; TEMP 97.5
[2022-08-07] MEDS: DICLOFENAC SODIUM 1% GEL 50GM TOP SCH (09:24)
[2022-08-07] MEDS: LIDOCAINE 5% PATCH TOP SCH (09:26)
[2022-08-07] MEDS: ASCORBIC ACID 500 MG TABLET PO SCH (09:26)
[2022-08-07] MEDS: AMLODIPINE 10MG TABLET PO SCH (09:27)
[2022-08-07] MEDS: FAMOTIDINE 20MG TABLET PO SCH (09:27)
[2022-08-07] MEDS: GABAPENTIN 300MG CAPSULE PO SCH (09:27)
[2022-08-07] MEDS: FERROUS SULFATE 325MG TABLET PO SCH (09:27)
[2022-08-07] MEDS: FOLIC ACID 1MG TABLET PO SCH (09:27)
[2022-08-07] MEDS: HYDRALAZINE HCL 50MG TABLET PO SCH (09:28)
[2022-08-07 09:30] VITALS: RESP 18
[2022-08-07] MEDS: LORATADINE 10MG TABLET PO SCH (09:30)
[2022-08-07] MEDS ORDERED: NALOXONE HCL 0.4MG/ML VIAL IV PRN (10:15)
[2022-08-07 11:05] VITALS: BP 121/91; PULSE 70; TEMP 97.5; O2SAT 97
== END 2022-08-07 13:24 | DRG 71 ==
PROVIDERS: ADMIT Physical Medicine & Rehabilitation Spinal Cord Injury Medicine; ATTEND Family Medicine Adult Medicine
PROC: 3E0T3BZ Introduction of Anesthetic Agent into Peripheral Nerves and Plexi, Percutaneous Approach (ICD-10-PCS; principal; 2022-07-30)
PROC: 3E0T33Z Introduction of Anti-inflammatory into Peripheral Nerves and Plexi, Percutaneous Approach (ICD-10-PCS; 2022-07-30)
DX: G93.41 Metabolic encephalopathy (principal); F01.53 Vascular dementia, unspecified severity, with mood disturbance; N39.0 Urinary tract infection, site not specified; I69.351 Hemiplegia and hemiparesis following cerebral infarction affecting right dominant side; E11.9 Type 2 diabetes mellitus without complications; D64.9 Anemia, unspecified; Z74.01 Bed confinement status; M54.81 Occipital neuralgia; M48.02 Spinal stenosis, cervical region; K21.9 Gastro-esophageal reflux disease without esophagitis; K74.60 Unspecified cirrhosis of liver; E53.8 Deficiency of other specified B group vitamins; E55.9 Vitamin D deficiency, unspecified; E61.1 Iron deficiency; F10.20 Alcohol dependence, uncomplicated; G62.9 Polyneuropathy, unspecified; G89.29 Other chronic pain; I10 Essential (primary) hypertension; R53.81 Other malaise; K59.00 Constipation, unspecified; M25.532 Pain in left wrist; R53.1 Weakness; M25.562 Pain in left knee; M25.561 Pain in right knee; R51.9 Headache, unspecified; M19.90 Unspecified osteoarthritis, unspecified site; Z60.2 Problems related to living alone; Z79.899 Other long term (current) drug therapy; Z82.3 Family history of stroke; Z82.49 Family history of ischemic heart disease and other diseases of the circulatory system; Z83.3 Family history of diabetes mellitus; Z87.891 Personal history of nicotine dependence; Z88.0 Allergy status to penicillin; Z91.81 History of falling; Z99.3 Dependence on wheelchair; Z88.8 Allergy status to other drugs, medicaments and biological substances; Z79.82 Long term (current) use of aspirin; S30.1XXD Contusion of abdominal wall, subsequent encounter; R26.9 Unspecified abnormalities of gait and mobility
CPT/HCPCS: 36415; 73110; 73130; 73560; 80053; 82306; 82607; 82728; 82746; 82962; 83036; 83540; 83550; 84134; 84443; 85025; 87426; 92523; 93970; 97014; 97110; 97162; 97166; 97530; 97535; 97542; J3301; J3420; J3490

== ENCOUNTER 2023-02-23 12:20 | Inpatient (IN) | payer BC, MEDICARE ==
[~2023-02-23] VITALS: Ht 172.7 cm; Wt 79.0 kg
[~2023-02-23 12:20] MED LIST changes: -AMLO10TA80 PO; +AMLO5TAB88 PO; +ATEN50TA PO; +FERR325T6 PO; -GABA-529 PO; +GABA-532 PO; +HYDR25TA PO; +IBUP-2029 PO; +PANT40TA51 PO
[2023-02-23 14:23] LABS: BASOPHILS % 0.5 % (0.0-2.0); DIFFERENTIAL COMMENT 0; EOSINOPHILS % 0.6 % (0.0-5.0); HEMATOCRIT. 38.4 % (36.0-48.0); HEMOGLOBIN. 12.3 g/dL (12.0-16.0); LYMPHOCYTES % 15.6 % (20.0-50.0); MEAN CORPUSCULAR HEMOGLOBIN 34.1 pg (28.0-32.0); MEAN CORPUSCULAR VOLUME 106.5 fL (81.0-99.0); MEAN PLATELET VOLUME 10.4 fl (7.4-10.4); MONOCYTES % 12.1 % (2.0-8.0); NEUTROPHILS % 71.2 % (40.0-76.0); PLATELET 54 x1000/uL (130-400); RED BLOOD CELL COUNT 3.61 mill/uL (4.2-5.4); RED CELL DISTRIBUTION WIDTH 15.7 % (11.6-14.6); WHITE BLOOD COUNT 3.2 x1000/uL (4.5-11.0)
[2023-02-23 14:51] LABS: ALANINE AMINOTRANSFERASE 61 IU/L (10-49); ALBUMIN 3.3 g/dL (3.2-4.8); ASPARTATE AMINOTRANSFERASE 177 IU/L (<34); BILIRUBIN TOTAL 3.2 mg/dL (0.1-1.0); CALCIUM 9.3 mg/dL (8.7-10.4); CARBON DIOXIDE 20 mEq/L (21-32); CHLORIDE 105 mEq/L (98-107); GLUCOSE 149 mg/dL (70-105); PROTEIN TOTAL 7.2 g/dL (6.0-8.3); SODIUM 140 mEq/L (136-145); TROPONIN I HIGH SENSITIVITY 19 ng/L (3.0-34); UREA NITROGEN BLOOD 10 mg/dL (9-23)
[2023-02-23] MEDS ORDERED: POTASSIUM CHLORIDE 20MEQ/PACKET PO ONE (17:45)
[2023-02-23 19:06] LABS: TROPONIN I HIGH SENSITIVITY 24 ng/L (3.0-34)
[2023-02-23] MEDS ORDERED: ASPIRIN 325MG EC TABLET PO ONE (20:00)
[2023-02-24] MEDS ORDERED: AMLODIPINE 10MG TABLET PO SCH (10:00)
[2023-02-24] MEDS ORDERED: ASPIRIN 81MG TABLET PO SCH (10:00)
[2023-02-24] MEDS ORDERED: CLONIDINE 0.1MG TABLET PO PRN (10:00)
[2023-02-24] MEDS ORDERED: ACETAMINOPHEN 325MG TABLET PO PRN (10:00)
[2023-02-24] MEDS ORDERED: DEXTROSE 50% WATER 50ML SYRINGE IV PRN (10:00)
[2023-02-24 11:19] LABS: BG BASE EXCESS 0.4 mmol/L (-2.0-2.0); BG CARBOXYHEMOGLOBIN 0.6 % (0.5-1.5); BG DEOXYHEMOGLOBIN 2.4 % (0.0-5.0); BG FRACTION INSPIRED OXYGEN 21; BG METHEMOGLOBIN 0.3 % (0.0-1.5); BG OXYGEN SATURATION 97.6 % (92.0-98.5); BG OXYHEMOGLOBIN 96.7 % (94.0-97.0); BG PCO2 31.2 mmHg (35.0-45.0); BG PH 7.486 (7.350-7.450); BG PO2 94.6 mmHg (75.0-100.0); BG SAMPLE SITE RIGHT BRACHIAL; BG TOTAL HEMOGLOBIN 12.5 g/dL (12.0-18.0); BG VENT MODE ROOM AIR
[2023-02-24] MEDS: INSULIN LISPRO 100 UNITS/ML SUBCUT SCH ×3 (12:15→21:45)
[2023-02-24] MEDS: SODIUM CHLORIDE 0.45% 1,000 ML IV SCH (12:45)
[2023-02-24] MEDS ORDERED: LOSARTAN 25 MG TABLET PO NR (12:45)
[2023-02-24] MEDS ORDERED: NITROGLYCERIN OINT 1GM/INCH UDPKT TD SCH (14:00)
[2023-02-24] MEDS: HYDRALAZINE HCL 25MG TABLET PO SCH ×2 (14:00→21:37)
[2023-02-24] MEDS: BLOOD SUGAR DIAGNOSTIC STRIP TEST SCH ×4 (16:10→21:05)
[2023-02-24] MEDS: AMLODIPINE 5MG TABLET PO SCH (17:00)
[2023-02-24 17:30] VITALS: BP 108/73; PULSE 76; RESP 18; TEMP 97.9
[2023-02-24 18:25] LABS: *AMPHETAMINES SCREEN URINE NEGATIVE (NEGATIVE); *BARBITURATES SCREEN URINE NEGATIVE (NEGATIVE); *BENZODIAZEPINES SCREEN URINE NEGATIVE (NEGATIVE); *COCAINE SCREEN URINE NEGATIVE (NEGATIVE); ECSTASY MDMA SCREEN URINE NEGATIVE (NEGATIVE); METHADONE URINE SCREEN Neg (NEGATIVE); OPIATES URINE SCREEN NEGATIVE (NEGATIVE); PHENCYCLIDINE URINE SCREEN NEGATIVE (NEGATIVE)
[2023-02-24 20:00] VITALS: BP 116/63; PULSE 82; RESP 20; TEMP 96.5
[2023-02-24] MEDS: ONDANSETRON HCL 4MG/2ML INJ IV PRN (21:38)
[2023-02-24] MEDS: ATORVASTATIN CALCIUM 20MG TABLET PO SCH (21:44)
[2023-02-24 23:02] LABS: CREATINE KINASE MB FRACTION 1.5 ng/mL (0.5-3.6)
[2023-02-24 23:05] LABS: ALANINE AMINOTRANSFERASE 48 IU/L (10-49); ASPARTATE AMINOTRANSFERASE 120 IU/L (<34); BILIRUBIN TOTAL 2.7 mg/dL (0.1-1.0); CALCIUM 8.9 mg/dL (8.7-10.4); CARBON DIOXIDE 21 mEq/L (21-32); CHLORIDE 107 mEq/L (98-107); CHOLESTEROL 90 mg/dL (<200); CREATININE 0.8 mg/dL (0.6-1.0); GLUCOSE 147 mg/dL (70-105); HDL CHOLESTEROL 22 mg/dL (>65); LDL CHOLESTEROL 38 mg/dL (5-100); POTASSIUM 3.6 mEq/L (3.5-5.1); PROTEIN TOTAL 6.6 g/dL (6.0-8.3); SODIUM 137 mEq/L (136-145); T4 FREE 1.14 ng/dL (0.89-1.76); TRIGLYCERIDE 104 mg/dL (0-150); UREA NITROGEN BLOOD 10 mg/dL (9-23)
[2023-02-24 23:12] LABS: BASOPHILS % 0.8 % (0.0-2.0); EOSINOPHILS % 1.7 % (0.0-5.0); HEMATOCRIT. 41.3 % (36.0-48.0); HEMOGLOBIN. 13.1 g/dL (12.0-16.0); LYMPHOCYTES % 23.7 % (20.0-50.0); MEAN CORPUSCULAR HEMOGLOBIN 34.4 pg (28.0-32.0); MEAN CORPUSCULAR HGB CONC 31.8 g/dL (31.0-37.0); MEAN CORPUSCULAR VOLUME 108.5 fL (81.0-99.0); MEAN PLATELET VOLUME 10.9 fl (7.4-10.4); MONOCYTES % 11.2 % (2.0-8.0); NEUTROPHILS % 62.6 % (40.0-76.0); RED BLOOD CELL COUNT 3.81 mill/uL (4.2-5.4); RED CELL DISTRIBUTION WIDTH 15.7 % (11.6-14.6)
[2023-02-24 23:48] LABS: DIFFERENTIAL COMMENT 1; PLATELET 50 x1000/uL (130-400)
[2023-02-25] VITALS: BP 134/52; PULSE 60; RESP 20; TEMP 97.1
[2023-02-25] MEDS: SODIUM CHLORIDE 0.45% 1,000 ML IV SCH ×2 (01:41→12:49)
[2023-02-25 04:00] VITALS: BP 134/62; PULSE 80; RESP 20; TEMP 97.5
[2023-02-25] MEDS: HYDRALAZINE HCL 25MG TABLET PO SCH ×3 (07:05→20:56)
[2023-02-25] MEDS: BLOOD SUGAR DIAGNOSTIC STRIP TEST SCH ×4 (07:24→20:57)
[2023-02-25 08:00] VITALS: BP 133/58; PULSE 82; RESP 20; TEMP 97
[2023-02-25] MEDS: INSULIN LISPRO 100 UNITS/ML SUBCUT SCH ×4 (08:10→21:18)
[2023-02-25] MEDS: LOSARTAN 25 MG TABLET PO SCH (09:05)
[2023-02-25] MEDS: AMLODIPINE 5MG TABLET PO SCH ×2 (09:05→18:27)
[2023-02-25 11:05] LABS: CALCIUM 8.6 mg/dL (8.7-10.4); CARBON DIOXIDE 20 mEq/L (21-32); CHLORIDE 105 mEq/L (98-107); CREATININE 0.7 mg/dL (0.6-1.0); GLUCOSE 121 mg/dL (70-105); POTASSIUM 3.4 mEq/L (3.5-5.1); SODIUM 138 mEq/L (136-145); UREA NITROGEN BLOOD 9 mg/dL (9-23)
[2023-02-25 12:00] VITALS: BP 113/51; PULSE 78; RESP 20; TEMP 97.6
[2023-02-25] MEDS: ACETAMINOPHEN 325MG TABLET PO PRN (12:02)
[2023-02-25 12:55] LABS: HEMATOCRIT. 37.1 % (36.0-48.0); HEMOGLOBIN. 12.3 g/dL (12.0-16.0); MEAN CORPUSCULAR HEMOGLOBIN 34.5 pg (28.0-32.0); MEAN CORPUSCULAR HGB CONC 33.1 g/dL (31.0-37.0); MEAN CORPUSCULAR VOLUME 104.3 fL (81.0-99.0); MEAN PLATELET VOLUME 11.3 fl (7.4-10.4); PLATELET 53 x1000/uL (130-400); RED BLOOD CELL COUNT 3.55 mill/uL (4.2-5.4); RED CELL DISTRIBUTION WIDTH 16.1 % (11.6-14.6); WHITE BLOOD COUNT 3.6 x1000/uL (4.5-11.0)
[2023-02-25 12:57] LABS: DIFFERENTIAL COMMENT 1
[2023-02-25 16:00] VITALS: BP 133/61; PULSE 89; RESP 20; TEMP 98.1
[2023-02-25 20:00] VITALS: BP 103/47; PULSE 96; RESP 19; TEMP 97.5
[2023-02-25] MEDS: ATORVASTATIN CALCIUM 20MG TABLET PO SCH (21:19)
[2023-02-26] VITALS: BP 124/59; PULSE 85; RESP 19; TEMP 97.7
[2023-02-26] MEDS: SODIUM CHLORIDE 0.45% 1,000 ML IV SCH ×2 (02:22→14:15)
[2023-02-26] MEDS: ACETAMINOPHEN 325MG TABLET PO PRN ×2 (02:22→19:19)
[2023-02-26 04:00] VITALS: BP 103/62; PULSE 82; RESP 19; TEMP 97.5
[2023-02-26 04:07] LABS: PLATELET ESTIMATE MARKEDLY DECREASED
[2023-02-26] MEDS: HYDRALAZINE HCL 25MG TABLET PO SCH ×3 (06:00→21:11)
[2023-02-26] MEDS: BLOOD SUGAR DIAGNOSTIC STRIP TEST SCH ×4 (06:34→20:38)
[2023-02-26] MEDS: INSULIN LISPRO 100 UNITS/ML SUBCUT SCH ×4 (06:34→21:12)
[2023-02-26 06:55] LABS: CALCIUM 8.3 mg/dL (8.7-10.4); CARBON DIOXIDE 23 mEq/L (21-32); CHLORIDE 107 mEq/L (98-107); CREATININE 0.7 mg/dL (0.6-1.0); GLUCOSE 102 mg/dL (70-105); POTASSIUM 2.9 mEq/L (3.5-5.1); SODIUM 136 mEq/L (136-145); UREA NITROGEN BLOOD 12 mg/dL (9-23)
[2023-02-26 07:05] LABS: HEMATOCRIT. 34.3 % (36.0-48.0); HEMOGLOBIN. 11.6 g/dL (12.0-16.0); MEAN CORPUSCULAR HEMOGLOBIN 34.9 pg (28.0-32.0); MEAN CORPUSCULAR HGB CONC 33.7 g/dL (31.0-37.0); MEAN CORPUSCULAR VOLUME 103.5 fL (81.0-99.0); MEAN PLATELET VOLUME 11.1 fl (7.4-10.4); PLATELET 51 x1000/uL (130-400); RED BLOOD CELL COUNT 3.31 mill/uL (4.2-5.4); WHITE BLOOD COUNT 3.7 x1000/uL (4.5-11.0)
[2023-02-26 07:13] LABS: DIFFERENTIAL COMMENT 1
[2023-02-26 07:57] VITALS: BP 127/60; PULSE 83; RESP 18; TEMP 97.3
[2023-02-26] MEDS ORDERED: POTASSIUM CHLORIDE INJ 40 MEQ in DEXT 5% WATER 250 ML IV ONE (08:30)
[2023-02-26] MEDS ORDERED: MAGNESIUM 2 G PREMIX 50 ML IV NR ×2 (10:00→22:00)
[2023-02-26] MEDS: LOSARTAN 25 MG TABLET PO SCH (10:15)
[2023-02-26] MEDS: AMLODIPINE 5MG TABLET PO SCH ×2 (10:18→17:30)
[2023-02-26 11:45] VITALS: BP 119/53; PULSE 87; RESP 19; TEMP 97.2
[2023-02-26] MEDS: KCL 20MEQ/100ML X 2 FOR TOTAL KCL 40MEQ/200ML IV SCH ×2 (11:59→14:04)
[2023-02-26 16:07] VITALS: BP 126/61; PULSE 90; RESP 19; TEMP 97.1
[2023-02-26 18:34] LABS: ANISOCYTOSIS 1+; PLATELET ESTIMATE DECREASED
[2023-02-26 20:00] VITALS: BP 114/75; PULSE 100; RESP 18; TEMP 97.5
[2023-02-26 20:18] LABS: POTASSIUM 3.2 mEq/L (3.5-5.1)
[2023-02-26] MEDS ORDERED: POTASSIUM CHLORIDE 20MEQ TABLET SR PO NR (21:00)
[2023-02-26] MEDS: ATORVASTATIN CALCIUM 20MG TABLET PO SCH (21:11)
[2023-02-26] MEDS: LIDOCAINE 5% PATCH TOP SCH (21:44)
[2023-02-27] VITALS: BP 111/53; PULSE 98; RESP 18; TEMP 97.7
[2023-02-27] MEDS: SODIUM CHLORIDE 0.45% 1,000 ML IV SCH ×2 (03:15→17:49)
[2023-02-27 04:30] VITALS: BP 123/62; PULSE 100; RESP 19; TEMP 98.1
[2023-02-27] MEDS: HYDRALAZINE HCL 25MG TABLET PO SCH ×3 (05:30→20:18)
[2023-02-27 06:19] LABS: CALCIUM 8.7 mg/dL (8.7-10.4); CARBON DIOXIDE 22 mEq/L (21-32); CHLORIDE 105 mEq/L (98-107); CREATININE 0.6 mg/dL (0.6-1.0); GLUCOSE 97 mg/dL (70-105); POTASSIUM 3.8 mEq/L (3.5-5.1); SODIUM 134 mEq/L (136-145); UREA NITROGEN BLOOD 12 mg/dL (9-23)
[2023-02-27] MEDS: BLOOD SUGAR DIAGNOSTIC STRIP TEST SCH ×4 (06:50→20:18)
[2023-02-27 07:14] LABS: HEMOGLOBIN. 12.2 g/dL (12.0-16.0); MEAN CORPUSCULAR HEMOGLOBIN 34.9 pg (28.0-32.0); MEAN CORPUSCULAR HGB CONC 33.8 g/dL (31.0-37.0); MEAN CORPUSCULAR VOLUME 103.3 fL (81.0-99.0); MEAN PLATELET VOLUME 11.1 fl (7.4-10.4); PLATELET 60 x1000/uL (130-400); RED BLOOD CELL COUNT 3.48 mill/uL (4.2-5.4); RED CELL DISTRIBUTION WIDTH 16.3 % (11.6-14.6); WHITE BLOOD COUNT 3.4 x1000/uL (4.5-11.0)
[2023-02-27 07:36] LABS: DIFFERENTIAL COMMENT 1
[2023-02-27] MEDS: INSULIN LISPRO 100 UNITS/ML SUBCUT SCH ×4 (08:10→20:19)
[2023-02-27 08:30] VITALS: BP 112/61; PULSE 117; RESP 20; TEMP 97.4
[2023-02-27] MEDS: LOSARTAN 25 MG TABLET PO SCH (09:01)
[2023-02-27] MEDS: AMLODIPINE 5MG TABLET PO SCH ×2 (09:01→17:39)
[2023-02-27] MEDS: LIDOCAINE 5% PATCH TOP SCH (09:05)
[2023-02-27 10:12] LABS: CLARITY URINE CLOUDY (CLEAR); COLOR URINE YELLOW (YELLOW); GLUCOSE URINE NEGATIVE (NEGATIVE); KETONES URINE NEGATIVE (NEGATIVE); LEUKOCYTE ESTERASE URINE 3+ (NEGATIVE); NITRITE URINE NEGATIVE (NEGATIVE); OCCULT BLOOD URINE 3+ (NEGATIVE); PROTEIN URINE 1+ (NEGATIVE); SPECIFIC GRAVITY URINE 1.007 (1.005-1.030)
[2023-02-27 11:43] LABS: SQUAMOUS EPITHELIAL CELL URINE 2+ /lpf (RARE/1+); WBC URINE TNTC /hpf (0-2)
[2023-02-27 11:44] LABS: BACTERIA URINE 4+
[2023-02-27 12:27] VITALS: BP 122/58; PULSE 102; RESP 19; TEMP 97.3
[2023-02-27 15:30] VITALS: BP 120/46; PULSE 79; RESP 20; TEMP 97.6
[2023-02-27] MEDS: PANTOPRAZOLE 40MG DR TABLET PO SCH (17:39)
[2023-02-27] MEDS: CIPROFLOXACIN 0.3% OPHTH SOLN 2.5ML BOTHEYE SCH ×2 (17:39→20:19)
[2023-02-27] MEDS: POLYVINYL ALCOHOL OPHTH DROPS 15ML BOTHEYE SCH ×2 (17:49→23:29)
[2023-02-27] MEDS ORDERED: CEPHALEXIN 250 MG/5 ML 100ML PO SCH (18:00)
[2023-02-27] MEDS: ATORVASTATIN CALCIUM 20MG TABLET PO SCH (20:18)
[2023-02-27] MEDS: ONDANSETRON HCL 4MG/2ML INJ IV PRN (20:19)
[2023-02-27 20:20] VITALS: BP 108/42; PULSE 100; RESP 20; TEMP 98.5
[2023-02-27] MEDS: ACETAMINOPHEN 325MG TABLET PO PRN (21:48)
[2023-02-27] MEDS: HYDROCODONE/ACETAMINOPHEN 5/325MG TABLET PO PRN (23:29)
[2023-02-27] MEDS ORDERED: NALOXONE HCL 0.4MG/ML VIAL IV PRN (23:30)
[2023-02-28] VITALS: BP 91/35; PULSE 98; RESP 20; TEMP 99.6
[2023-02-28 04:00] VITALS: BP 108/64; PULSE 106; RESP 20; TEMP 99.7
[2023-02-28] MEDS: SODIUM CHLORIDE 0.45% 1,000 ML IV SCH ×2 (04:25→18:19)
[2023-02-28] MEDS: HYDRALAZINE HCL 25MG TABLET PO SCH ×3 (05:10→21:43)
[2023-02-28] MEDS: POLYVINYL ALCOHOL OPHTH DROPS 15ML BOTHEYE SCH ×4 (06:14→23:55)
[2023-02-28] MEDS: INSULIN LISPRO 100 UNITS/ML SUBCUT SCH ×4 (06:14→20:45)
[2023-02-28] MEDS: BLOOD SUGAR DIAGNOSTIC STRIP TEST SCH ×4 (06:14→20:45)
[2023-02-28] MEDS: PANTOPRAZOLE 40MG DR TABLET PO SCH (06:14)
[2023-02-28 07:11] LABS: ANISOCYTOSIS 1+; PLATELET ESTIMATE MARKEDLY DECREASED
[2023-02-28 08:00] VITALS: BP 143/65; PULSE 89; RESP 13; TEMP 100.7
[2023-02-28] MEDS: LOSARTAN 25 MG TABLET PO SCH (09:05)
[2023-02-28] MEDS: AMLODIPINE 5MG TABLET PO SCH ×2 (09:05→17:00)
[2023-02-28] MEDS: CIPROFLOXACIN 0.3% OPHTH SOLN 2.5ML BOTHEYE SCH ×4 (09:08→20:45)
[2023-02-28] MEDS: LIDOCAINE 5% PATCH TOP SCH (09:08)
[2023-02-28 12:00] VITALS: BP 121/46; PULSE 64; RESP 16; TEMP 98.1
[2023-02-28] MEDS ORDERED: CEFTRIAXONE 1,000 MG in DEXTROSE 5% WATER 50 ML IV SCH (13:00)
[2023-02-28 16:00] VITALS: BP 95/75; PULSE 52; RESP 18; TEMP 99.6
[2023-02-28 20:00] VITALS: BP 122/58; PULSE 110; RESP 19; TEMP 103.1; TEMP 98.9
[2023-02-28] MEDS: ATORVASTATIN CALCIUM 20MG TABLET PO SCH (21:43)
[2023-02-28] MEDS: HYDROCODONE/ACETAMINOPHEN 5/325MG TABLET PO PRN (21:44)
[2023-03-01] VITALS (7 sets, daily range): BP systolic 104–139; BP diastolic 54–69; PULSE 75–110; RESP 18–20; TEMP 97.4–103; O2SAT 95–98
[2023-03-01] MEDS: HYDRALAZINE HCL 25MG TABLET PO SCH ×3 (05:31→22:00)
[2023-03-01] MEDS: POLYVINYL ALCOHOL OPHTH DROPS 15ML BOTHEYE SCH ×3 (05:32→18:00)
[2023-03-01] MEDS: SODIUM CHLORIDE 0.45% 1,000 ML IV SCH ×2 (05:38→17:45)
[2023-03-01 06:41] LABS: CALCIUM 8.2 mg/dL (8.7-10.4); CARBON DIOXIDE 22 mEq/L (21-32); CHLORIDE 103 mEq/L (98-107); CREATININE 0.7 mg/dL (0.6-1.0); GLUCOSE 90 mg/dL (70-105); POTASSIUM 4.2 mEq/L (3.5-5.1); SODIUM 131 mEq/L (136-145); UREA NITROGEN BLOOD 11 mg/dL (9-23)
[2023-03-01 06:43] LABS: HEMATOCRIT. 31.6 % (36.0-48.0); HEMOGLOBIN. 10.4 g/dL (12.0-16.0); MEAN CORPUSCULAR HEMOGLOBIN 35.1 pg (28.0-32.0); MEAN CORPUSCULAR VOLUME 106.2 fL (81.0-99.0); MEAN PLATELET VOLUME 10.5 fl (7.4-10.4); PLATELET 61 x1000/uL (130-400); RED BLOOD CELL COUNT 2.97 mill/uL (4.2-5.4); RED CELL DISTRIBUTION WIDTH 16.3 % (11.6-14.6); WHITE BLOOD COUNT 4.4 x1000/uL (4.5-11.0)
[2023-03-01 06:51] LABS: DIFFERENTIAL COMMENT 1
[2023-03-01] MEDS: PANTOPRAZOLE 40MG DR TABLET PO SCH (07:40)
[2023-03-01] MEDS: BLOOD SUGAR DIAGNOSTIC STRIP TEST SCH ×4 (07:40→21:00)
[2023-03-01] MEDS: INSULIN LISPRO 100 UNITS/ML SUBCUT SCH ×4 (08:10→21:00)
[2023-03-01] MEDS: CIPROFLOXACIN 0.3% OPHTH SOLN 2.5ML BOTHEYE SCH ×4 (09:00→21:00)
[2023-03-01] MEDS: LOSARTAN 25 MG TABLET PO SCH (11:01)
[2023-03-01] MEDS: AMLODIPINE 5MG TABLET PO SCH ×2 (11:01→17:00)
[2023-03-01] MEDS: LIDOCAINE 5% PATCH TOP SCH (11:02)
[2023-03-01] MEDS: CEFTRIAXONE 1,000 MG in DEXTROSE 5% WATER 50 ML IV SCH (13:00)
[2023-03-01] MEDS: IPRATROPIUM/ALBUTEROL 0.5-3(2.5)MG/3ML NEB HHN PRN ×2 (18:15→23:28)
[2023-03-01 20:22] LABS: ANISOCYTOSIS 1+; PLATELET ESTIMATE MARKEDLY DECREASED
[2023-03-01] MEDS: HYDROCODONE/ACETAMINOPHEN 5/325MG TABLET PO PRN (22:53)
[2023-03-01] MEDS: ATORVASTATIN CALCIUM 20MG TABLET PO SCH (22:53)
[2023-03-02] VITALS (9 sets, daily range): BP systolic 107–149; BP diastolic 60–96; PULSE 77–100; RESP 16–20; TEMP 97.3–99.3; O2SAT 98
[2023-03-02] MEDS: POLYVINYL ALCOHOL OPHTH DROPS 15ML BOTHEYE SCH ×4 (00:12→18:00)
[2023-03-02] MEDS: ACETAMINOPHEN 325MG TABLET PO PRN (00:15)
[2023-03-02] MEDS: DOCUSATE SODIUM 100MG CAPSULE PO PRN ×2 (00:15→09:43)
[2023-03-02 01:05] LABS: CREATINE KINASE 63 IU/L (34-145)
[2023-03-02] MEDS: HYDRALAZINE HCL 25MG TABLET PO SCH ×3 (05:24→21:51)
[2023-03-02] MEDS: HYDROCODONE/ACETAMINOPHEN 5/325MG TABLET PO PRN ×2 (05:25→20:20)
[2023-03-02] MEDS: IPRATROPIUM/ALBUTEROL 0.5-3(2.5)MG/3ML NEB HHN PRN ×2 (05:36→09:37)
[2023-03-02] MEDS: SODIUM CHLORIDE 0.45% 1,000 ML IV SCH (05:56)
[2023-03-02 06:58] LABS: ALANINE AMINOTRANSFERASE 57 IU/L (10-49); ALBUMIN 2.5 g/dL (3.2-4.8); ASPARTATE AMINOTRANSFERASE 199 IU/L (<34); BILIRUBIN TOTAL 1.2 mg/dL (0.1-1.0); CALCIUM 8.2 mg/dL (8.7-10.4); CARBON DIOXIDE 22 mEq/L (21-32); CHLORIDE 103 mEq/L (98-107); CREATINE KINASE 54 IU/L (34-145); CREATININE 0.5 mg/dL (0.6-1.0); GLUCOSE 143 mg/dL (70-105); POTASSIUM 3.6 mEq/L (3.5-5.1); SODIUM 133 mEq/L (136-145); UREA NITROGEN BLOOD 10 mg/dL (9-23)
[2023-03-02 07:19] LABS: HEMATOCRIT. 31.1 % (36.0-48.0); HEMOGLOBIN. 10.1 g/dL (12.0-16.0); MEAN CORPUSCULAR HEMOGLOBIN 34.2 pg (28.0-32.0); MEAN CORPUSCULAR HGB CONC 32.4 g/dL (31.0-37.0); MEAN CORPUSCULAR VOLUME 105.5 fL (81.0-99.0); MEAN PLATELET VOLUME 10.8 fl (7.4-10.4); PLATELET 67 x1000/uL (130-400); RED BLOOD CELL COUNT 2.95 mill/uL (4.2-5.4); RED CELL DISTRIBUTION WIDTH 16.3 % (11.6-14.6)
[2023-03-02] MEDS: PANTOPRAZOLE 40MG DR TABLET PO SCH (07:20)
[2023-03-02] MEDS: BLOOD SUGAR DIAGNOSTIC STRIP TEST SCH ×4 (07:20→20:28)
[2023-03-02 07:26] LABS: DIFFERENTIAL COMMENT 1
[2023-03-02] MEDS: INSULIN LISPRO 100 UNITS/ML SUBCUT SCH ×4 (07:50→20:28)
[2023-03-02] MEDS: CIPROFLOXACIN 0.3% OPHTH SOLN 2.5ML BOTHEYE SCH ×4 (09:00→20:20)
[2023-03-02] MEDS: AMLODIPINE 5MG TABLET PO SCH ×2 (09:00→17:00)
[2023-03-02] MEDS: LIDOCAINE 5% PATCH TOP SCH (09:42)
[2023-03-02] MEDS: LOSARTAN 25 MG TABLET PO SCH (09:43)
[2023-03-02] MEDS: CEFTRIAXONE 1,000 MG in DEXTROSE 5% WATER 50 ML IV SCH (13:00)
[2023-03-02] MEDS: ATORVASTATIN CALCIUM 20MG TABLET PO SCH (20:18)
[2023-03-02 20:19] LABS: NUCLEATED RED BLOOD CELLS 3 /100 WBC; PLATELET ESTIMATE MARKEDLY DECREASED
[2023-03-03] VITALS (8 sets, daily range): BP systolic 107–148; BP diastolic 55–86; PULSE 61–108; RESP 18–20; TEMP 96.3–99.7; O2SAT 97–99
[2023-03-03] MEDS: POLYVINYL ALCOHOL OPHTH DROPS 15ML BOTHEYE SCH ×4 (00:08→18:00)
[2023-03-03] MEDS: PANTOPRAZOLE 40MG DR TABLET PO SCH (06:24)
[2023-03-03] MEDS: BLOOD SUGAR DIAGNOSTIC STRIP TEST SCH ×3 (06:26→17:20)
[2023-03-03] MEDS: HYDRALAZINE HCL 25MG TABLET PO SCH (06:26)
[2023-03-03] MEDS: SODIUM CHLORIDE 0.45% 1,000 ML IV SCH (06:26)
[2023-03-03] MEDS: INSULIN LISPRO 100 UNITS/ML SUBCUT SCH ×3 (07:16→17:50)
[2023-03-03] MEDS: IPRATROPIUM/ALBUTEROL 0.5-3(2.5)MG/3ML NEB HHN SCH ×2 (07:58→13:25)
[2023-03-03] MEDS: CIPROFLOXACIN 0.3% OPHTH SOLN 2.5ML BOTHEYE SCH ×3 (09:00→17:00)
[2023-03-03] MEDS: LIDOCAINE 5% PATCH TOP SCH (09:00)
[2023-03-03] MEDS: LOSARTAN 25 MG TABLET PO SCH (09:17)
[2023-03-03] MEDS: AMLODIPINE 5MG TABLET PO SCH ×2 (09:17→17:00)
[2023-03-03] MEDS: CEFTRIAXONE 1,000 MG in DEXTROSE 5% WATER 50 ML IV SCH (13:00)
[2023-03-03] MEDS ORDERED: HYDRALAZINE HCL 50MG TABLET PO SCH (14:00)
== END 2023-03-03 18:46 | DRG 690 ==
LOC: ER 12:20 → MICUSO 19:58 → EDBEDREQ 20:09 → EDBEDREQTM 21:04 → 5WST 02-24 08:52 → 7WST 02-24 16:53 → 6WST 03-01 15:27
PROVIDERS: ADMIT Internal Medicine; ATTEND Internal Medicine
DX: N39.0 Urinary tract infection, site not specified (principal); D61.818 Other pancytopenia; R18.8 Other ascites; J44.1 Chronic obstructive pulmonary disease with (acute) exacerbation; K74.60 Unspecified cirrhosis of liver; K80.20 Calculus of gallbladder without cholecystitis without obstruction; E87.6 Hypokalemia; E78.5 Hyperlipidemia, unspecified; E11.9 Type 2 diabetes mellitus without complications; D72.819 Decreased white blood cell count, unspecified; I10 Essential (primary) hypertension; D63.8 Anemia in other chronic diseases classified elsewhere; Z20.822 Contact with and (suspected) exposure to COVID-19; I16.0 Hypertensive urgency; D69.6 Thrombocytopenia, unspecified; E83.42 Hypomagnesemia; M19.012 Primary osteoarthritis, left shoulder; F17.200 Nicotine dependence, unspecified, uncomplicated; F32.A Depression, unspecified; Z96.659 Presence of unspecified artificial knee joint; Z79.4 Long term (current) use of insulin; Z79.899 Other long term (current) drug therapy; Z86.73 Personal history of transient ischemic attack (TIA), and cerebral infarction without residual deficits; Z88.0 Allergy status to penicillin
CPT/HCPCS: 36415; 36600; 71045; 73200; 76700; 76770; 76856; 78580; 80048; 80053; 80061; 80305; 81003; 82375; 82550; 82553; 82805; 82962; 83036; 83605; 83735; 83880; 84132; 84145; 84439; 84443; 84480; 84484; 85025; 85379; 87186; 87426; 87804; 93005; 93306; 93970; 94640; 97162; 97166; 97530; 99285; A6261; C1893; J0696; J1815; J2405; J3475; J3480; J7060

== ENCOUNTER 2023-06-10 12:56 | Inpatient (IN) | payer BC ==
[~2023-06-10] VITALS: Ht 182.9 cm; Wt 83.9 kg
[~2023-06-10 12:56] MED LIST changes: -HYDR-4134 PO; +HYDR25TA78 PO
[2023-06-10] MEDS: ACETAMINOPHEN 325MG TABLET PO ONE (13:48)
[2023-06-10 13:50] LABS: BASOPHILS % 1.4 % (0.0-2.0); DIFFERENTIAL COMMENT 0; EOSINOPHILS % 4.1 % (0.0-5.0); HEMATOCRIT. 35.4 % (36.0-48.0); HEMOGLOBIN. 11.8 g/dL (12.0-16.0); LYMPHOCYTES % 41.2 % (20.0-50.0); MEAN CORPUSCULAR HEMOGLOBIN 34.4 pg (28.0-32.0); MEAN CORPUSCULAR HGB CONC 33.3 g/dL (31.0-37.0); MEAN CORPUSCULAR VOLUME 103.4 fL (81.0-99.0); MEAN PLATELET VOLUME 10.3 fl (7.4-10.4); MONOCYTES % 9.5 % (2.0-8.0); NEUTROPHILS % 43.8 % (40.0-76.0); PLATELET 114 x1000/uL (130-400); RED BLOOD CELL COUNT 3.43 mill/uL (4.2-5.4); RED CELL DISTRIBUTION WIDTH 18.2 % (11.6-14.6); WHITE BLOOD COUNT 4.2 x1000/uL (4.5-11.0)
[2023-06-10 13:59] LABS: CARBON DIOXIDE 23 mEq/L (21-32); CHLORIDE 107 mEq/L (98-107); POTASSIUM 3.5 mEq/L (3.5-5.1); SODIUM 139 mEq/L (136-145)
[2023-06-10 14:00] LABS: CALCIUM 8.4 mg/dL (8.7-10.4)
[2023-06-10 14:04] LABS: CREATININE 0.5 mg/dL (0.6-1.0); GLUCOSE 93 mg/dL (70-105)
[2023-06-10 14:05] LABS: UREA NITROGEN BLOOD 5 mg/dL (9-23)
[2023-06-10 14:06] LABS: ALANINE AMINOTRANSFERASE 21 IU/L (10-49); ASPARTATE AMINOTRANSFERASE 67 IU/L (<34)
[2023-06-10 14:07] LABS: ALBUMIN 3.4 g/dL (3.2-4.8); BILIRUBIN TOTAL 1.5 mg/dL (0.1-1.0); PROTEIN TOTAL 7.6 g/dL (6.0-8.3)
[2023-06-10 20:00] VITALS: BP_SYST 120; BP_SYST 131; BP_DIAS 60; BP_DIAS 62; PULSE 81; PULSE 85; RESP 18; RESP 20; TEMP 97.5; TEMP 97.7
[2023-06-10] MEDS ORDERED: TRAMADOL HCL/ACETAMINOPHEN 37.5/325MG TABLET PO PRN (22:00)
[2023-06-10] MEDS ORDERED: TRAMADOL HCL/ACETAMINOPHEN 37.5/325MG TABLET PO ONE (22:00)
[2023-06-10] MEDS: TRAMADOL 50MG TABLET PO NR (22:10)
[2023-06-11] VITALS: BP 122/61; PULSE 94; RESP 19; TEMP 97.6
[2023-06-11] MEDS: TRAMADOL 50MG TABLET PO PRN (03:34)
[2023-06-11 04:00] VITALS: BP 123/63; PULSE 100; RESP 18; TEMP 97.6
[2023-06-11] MEDS: PANTOPRAZOLE 40MG DR TABLET PO SCH (06:51)
[2023-06-11 08:00] VITALS: BP 120/61; PULSE 74; RESP 20; TEMP 98.5
[2023-06-11] MEDS: HYDRALAZINE HCL 25MG TABLET PO SCH (08:31)
[2023-06-11] MEDS: AMLODIPINE 5MG TABLET PO SCH (08:32)
[2023-06-11] MEDS: ENOXAPARIN 40MG/0.4ML SYR SUBCUT SCH (08:34)
[2023-06-11] MEDS: LACTULOSE 20G/30ML UDC PO SCH (08:35)
[2023-06-11 12:00] VITALS: BP 122/52; PULSE 85; RESP 19; TEMP 97.9
[2023-06-11] MEDS ORDERED: NALOXONE HCL 0.4MG/ML VIAL IV PRN ×2 (13:30→21:45)
[2023-06-11] MEDS: LACTULOSE 20G/30ML UDC PO NR (13:30)
[2023-06-11 16:00] VITALS: BP 122/52; PULSE 91; RESP 20; TEMP 97.9
[2023-06-11 20:00] VITALS: BP 127/56; PULSE 99; RESP 19; TEMP 97.7
[2023-06-11] MEDS: ONDANSETRON HCL 4MG/2ML INJ IV PRN (22:07)
[2023-06-11] MEDS: HYDROCODONE/ACETAMINOPHEN 5/325MG TABLET PO PRN (22:07)
[2023-06-12] VITALS: BP 131/67; PULSE 86; RESP 20; TEMP 97.7
[2023-06-12 04:00] VITALS: BP 149/79; PULSE 101; RESP 20; TEMP 97.6
[2023-06-12 08:00] VITALS: BP 134/64; PULSE 98; RESP 19; TEMP 97.9
[2023-06-12 12:00] VITALS: BP 140/69; PULSE 101; RESP 20; TEMP 96.7
[2023-06-12 16:00] VITALS: BP 112/61; PULSE 99; RESP 19; TEMP 96.7
[2023-06-12] MEDS: ONDANSETRON HCL 4MG TABLET PO PRN (17:50)
[2023-06-12 20:00] VITALS: BP 108/55; PULSE 96; TEMP 98.7
[2023-06-12] MEDS: HYDROXYZINE 25MG TABLET PO PRN (23:59)
[2023-06-13 08:00] VITALS: BP 123/56; PULSE 101; RESP 20; TEMP 97.6
[2023-06-13 12:00] VITALS: BP 156/68; PULSE 92; RESP 19; TEMP 97.6
[2023-06-13 16:00] VITALS: BP 122/62; PULSE 111; RESP 20; TEMP 98.2
[2023-06-13 20:00] VITALS: BP 90/63; PULSE 114; RESP 20; TEMP 98.8
[2023-06-14] VITALS: BP 124/63; PULSE 102; RESP 20; TEMP 98.1
[2023-06-14 04:00] VITALS: BP 147/61; PULSE 112; RESP 20; TEMP 99.5
[2023-06-14] MEDS ORDERED: BUPIVACAINE HCL/PF 0.5% (5MG/ML) 10ML ONE (07:08)
[2023-06-14] MEDS ORDERED: LIDOCAINE HCL/EPINEPHRINE 1%-EPI 1:100,000 20 ML VIAL ONE (07:08)
[2023-06-14] MEDS ORDERED: VANCOMYCIN HCL 1 GM/VIAL ONE (07:09)
[2023-06-14 08:00] VITALS: BP 124/57; PULSE 96; RESP 19; TEMP 96.7
[2023-06-14] MEDS ORDERED: PROPOFOL 200MG/20ML VIAL IV ONE (08:30)
[2023-06-14] MEDS ORDERED: MIDAZOLAM HCL 2 MG/2 ML VIAL ONE (08:43)
[2023-06-14] MEDS ORDERED: CLINDAMYCIN 600MG PREMIX 50 ML IV ONE (08:44)
[2023-06-14] MEDS ORDERED: SUCCINYLCHOLINE CHLORIDE 200MG/10ML IV ONE (08:49)
[2023-06-14] MEDS ORDERED: DEXAMETHASONE 4MG/ML 1ML VIAL ONE (09:07)
[2023-06-14] MEDS ORDERED: FENTANYL CITRATE/PF 50MCG/ML 2ML VIAL ONE (09:07)
[2023-06-14] MEDS ORDERED: ONDANSETRON HCL 4MG/2ML INJ ONE (09:07)
[2023-06-14] MEDS ORDERED: POLYMYXIN B SULFATE 500000 UNITS/VIAL ONE (09:12)
[2023-06-14] MEDS ORDERED: FENTANYL CITRATE/PF 50MCG/ML 2ML VIAL IV PRN (09:30)
[2023-06-14] MEDS ORDERED: MEPERIDINE HCL/PF 25MG/ML CPJ IV PRN (09:30)
[2023-06-14] MEDS ORDERED: ONDANSETRON HCL 4MG/2ML INJ IV PRN (09:30)
[2023-06-14] MEDS: HYDROMORPHONE HCL/PF 2MG/ML CPJ IV PRN (10:10)
[2023-06-14] MEDS: HYDROCODONE/ACETAMINOPHEN 5/325MG TABLET PO PRN (11:21)
[2023-06-14 12:00] VITALS: BP 125/75; PULSE 103; RESP 20; TEMP 95.5
[2023-06-14] MEDS: DIPHENHYDRAMINE 50MG CAPSULE PO NR (15:37)
[2023-06-14 16:00] VITALS: BP 128/67; PULSE 101; RESP 19; TEMP 96.7
[2023-06-14 20:00] VITALS: BP 123/75; PULSE 109; RESP 19; TEMP 98.9
[2023-06-14] MEDS: MIRTAZAPINE 15MG TABLET PO SCH (21:20)
[2023-06-15] VITALS: BP 141/61; PULSE 93; RESP 17; TEMP 97
[2023-06-15 08:00] VITALS: BP 124/70; PULSE 84; RESP 18; TEMP 97.5
[2023-06-15 12:00] VITALS: BP 124/59; PULSE 66; RESP 20; TEMP 98.1
[2023-06-15 16:00] VITALS: BP 109/55; PULSE 69; RESP 19; TEMP 97.7
[2023-06-15 20:00] VITALS: BP 117/58; PULSE 73; RESP 20; TEMP 97.5
[2023-06-16] VITALS: BP 133/71; PULSE 73; RESP 20; TEMP 97.7
[2023-06-16 04:00] VITALS: BP 128/64; PULSE 76; RESP 20; TEMP 97.2
[2023-06-16 08:00] VITALS: BP 125/65; PULSE 71; RESP 20; TEMP 97.9
[2023-06-16 11:29] LABS: BASOPHILS % 0.4 % (0.0-2.0); DIFFERENTIAL COMMENT 0; EOSINOPHILS % 1.1 % (0.0-5.0); HEMATOCRIT. 29.1 % (36.0-48.0); HEMOGLOBIN. 9.7 g/dL (12.0-16.0); LYMPHOCYTES % 17.7 % (20.0-50.0); MEAN CORPUSCULAR HEMOGLOBIN 34.4 pg (28.0-32.0); MEAN CORPUSCULAR HGB CONC 33.4 g/dL (31.0-37.0); MEAN CORPUSCULAR VOLUME 102.9 fL (81.0-99.0); MEAN PLATELET VOLUME 10.9 fl (7.4-10.4); MONOCYTES % 12.7 % (2.0-8.0); NEUTROPHILS % 68.1 % (40.0-76.0); RED BLOOD CELL COUNT 2.83 mill/uL (4.2-5.4); RED CELL DISTRIBUTION WIDTH 17.4 % (11.6-14.6); WHITE BLOOD COUNT 4.7 x1000/uL (4.5-11.0)
[2023-06-16 11:38] LABS: CHLORIDE 106 mEq/L (98-107); POTASSIUM 3.9 mEq/L (3.5-5.1); SODIUM 134 mEq/L (136-145)
[2023-06-16 11:39] LABS: CARBON DIOXIDE 22 mEq/L (21-32)
[2023-06-16 11:41] LABS: PLATELET 95 x1000/uL (130-400)
[2023-06-16 11:44] LABS: CREATININE 0.6 mg/dL (0.6-1.0); GLUCOSE 137 mg/dL (70-105); UREA NITROGEN BLOOD 6 mg/dL (9-23)
[2023-06-16 12:00] VITALS: BP 138/66; PULSE 80; RESP 20; TEMP 97.9
[2023-06-16] MEDS ORDERED: MORPHINE SULFATE 2 MG/ML CPJ (NOT FOR IM USE) IV NR (15:15)
[2023-06-16 16:00] VITALS: BP 126/79; PULSE 81; RESP 20; TEMP 96.6
[2023-06-16 20:00] VITALS: BP 127/71; PULSE 85; RESP 20; TEMP 97.5
[2023-06-17] VITALS: BP 122/54; PULSE 83; RESP 20; TEMP 98.6
[2023-06-17 04:00] VITALS: BP_SYST 115; BP_SYST 140; BP_DIAS 55; BP_DIAS 61; PULSE 71; PULSE 95; RESP 18; TEMP 98.1; TEMP 99.1
[2023-06-17 06:41] LABS: BASOPHILS % 0.7 % (0.0-2.0); DIFFERENTIAL COMMENT 0; EOSINOPHILS % 1.8 % (0.0-5.0); HEMATOCRIT. 28.3 % (36.0-48.0); HEMOGLOBIN. 9.4 g/dL (12.0-16.0); LYMPHOCYTES % 20.5 % (20.0-50.0); MEAN CORPUSCULAR HEMOGLOBIN 34.4 pg (28.0-32.0); MEAN CORPUSCULAR HGB CONC 33.4 g/dL (31.0-37.0); MEAN CORPUSCULAR VOLUME 102.8 fL (81.0-99.0); MEAN PLATELET VOLUME 10.5 fl (7.4-10.4); PLATELET 89 x1000/uL (130-400); RED BLOOD CELL COUNT 2.75 mill/uL (4.2-5.4); RED CELL DISTRIBUTION WIDTH 17.2 % (11.6-14.6); WHITE BLOOD COUNT 3.4 x1000/uL (4.5-11.0)
[2023-06-17 06:50] LABS: CHLORIDE 109 mEq/L (98-107); POTASSIUM 3.6 mEq/L (3.5-5.1); SODIUM 137 mEq/L (136-145)
[2023-06-17 06:51] LABS: CALCIUM 8.8 mg/dL (8.7-10.4); CARBON DIOXIDE 26 mEq/L (21-32)
[2023-06-17 06:56] LABS: CREATININE 0.6 mg/dL (0.6-1.0); GLUCOSE 85 mg/dL (70-105); UREA NITROGEN BLOOD 8 mg/dL (9-23)
[2023-06-17 08:00] VITALS: BP 131/54; PULSE 86; RESP 19; TEMP 98.1
[2023-06-17 12:00] VITALS: BP 138/62; PULSE 89; RESP 19; TEMP 98.1
[2023-06-17] MEDS: TRAMADOL 50MG TABLET PO PRN (12:26)
[2023-06-17 16:00] VITALS: BP 115/59; PULSE 19; RESP 19; TEMP 98.1
[2023-06-17 20:00] VITALS: BP 133/62; PULSE 92; RESP 18; TEMP 97.9
[2023-06-18] VITALS: BP 129/43; PULSE 87; RESP 18; TEMP 98.4
[2023-06-18 04:00] VITALS: BP_DIAS 60; PULSE 83; RESP 18; TEMP 98
[2023-06-18 08:00] VITALS: BP 132/66; PULSE 81; RESP 18; TEMP 96.6
[2023-06-18] MEDS ORDERED: DIPHENHYDRAMINE 25MG CAPSULE PO PRN (15:15)
[2023-06-18 16:00] VITALS: BP 99/60; PULSE 98; RESP 17; TEMP 97.7
[2023-06-18 20:00] VITALS: BP 134/70; PULSE 96; RESP 18; TEMP 99
[2023-06-19] VITALS (7 sets, daily range): BP systolic 124–132; BP diastolic 46–87; PULSE 86–94; RESP 18–20; TEMP 96.1–98.8; O2SAT 98
[2023-06-19] MEDS: SULFAMETHOXAZOLE/TRIMETHOPRIM 800/160MG TABLET PO SCH (17:43)
[2023-06-19] MEDS: HYDROCODONE/ACETAMINOPHEN 5/325MG TABLET PO NR (18:55)
== END 2023-06-19 19:55 | disposition home or self-care (01) | DRG 493 ==
LOC: ER 12:56 → EDBEDREQ 15:42 → EDBEDREQTM 17:05 → EDBEDREQSVC 17:05 → 6EST 17:48
PROVIDERS: ADMIT Internal Medicine; ATTEND Internal Medicine
PROC: 0SPF04Z Removal of Internal Fixation Device from Right Ankle Joint, Open Approach (ICD-10-PCS; principal; 2023-06-14)
PROC: 3E1U38Z Irrigation of Joints using Irrigating Substance, Percutaneous Approach (ICD-10-PCS; 2023-06-14)
DX: T84.59XA Infection and inflammatory reaction due to other internal joint prosthesis, initial encounter (principal); D61.818 Other pancytopenia; I50.32 Chronic diastolic (congestive) heart failure; K86.2 Cyst of pancreas; K74.60 Unspecified cirrhosis of liver; I11.0 Hypertensive heart disease with heart failure; F32.9 Major depressive disorder, single episode, unspecified; E11.9 Type 2 diabetes mellitus without complications; S91.001A Unspecified open wound, right ankle, initial encounter; K59.00 Constipation, unspecified; K80.20 Calculus of gallbladder without cholecystitis without obstruction; M19.90 Unspecified osteoarthritis, unspecified site; L26 Exfoliative dermatitis; L29.9 Pruritus, unspecified; L30.9 Dermatitis, unspecified; I49.1 Atrial premature depolarization; F51.05 Insomnia due to other mental disorder; F41.9 Anxiety disorder, unspecified; Z96.651 Presence of right artificial knee joint; Z86.73 Personal history of transient ischemic attack (TIA), and cerebral infarction without residual deficits; Z88.0 Allergy status to penicillin; Z79.899 Other long term (current) drug therapy; Z79.4 Long term (current) use of insulin; Y83.1 Surgical operation with implant of artificial internal device as the cause of abnormal reaction of the patient, or of later complication, without mention of misadventure at the time of the procedure
CPT/HCPCS: 36415; 73560; 73600; 73610; 74176; 76000; 80048; 80053; 84145; 85025; 87070; 87075; 87077; 87186; 88300; 97166; 99285; C1893; J0330; J1100; J1170; J1650; J2250; J2405; J2704; J3010; J3370; J3490; Q0162; Q0163

== ENCOUNTER 2023-11-30 16:51 | Emergency (ER) | payer MEDICARE, MEDICAID ==
[~2023-11-30] VITALS: Ht 162.6 cm; Wt 67.0 kg
[~2023-11-30 16:51] MED LIST changes: +CITA10TA16 PO; -FERR325T6 PO; -HYDR25TA PO; -IBUP-2029 PO; -LORA10TA7 PO; -LOSA50TA41 PO; +LOV30 SUBCUT; -MOM PO
[2023-11-30 17:07] VITALS: O2SAT 99
[2023-11-30 17:51] VITALS: TEMP 37.05852
[2023-11-30] MEDS ORDERED: TOPUD PO (18:37)
[2023-11-30] MEDS: KETOROLAC 30MG/ML VIAL IM ONE (19:17)
[2023-11-30] MEDS: HYDRALAZINE 20MG/ML VIAL IV ONE (19:45)
[2023-11-30 20:42] VITALS: BP 116/84; PULSE 73; RESP 25; O2SAT 98
== END 2023-11-30 21:20 | disposition home or self-care (01) ==
LOC: ER 16:51
DX: M19.042 Primary osteoarthritis, left hand (principal); G89.29 Other chronic pain; M54.2 Cervicalgia; M48.02 Spinal stenosis, cervical region; I50.9 Heart failure, unspecified; E11.9 Type 2 diabetes mellitus without complications; Z88.0 Allergy status to penicillin; Z88.8 Allergy status to other drugs, medicaments and biological substances; Z79.899 Other long term (current) drug therapy
CPT/HCPCS: 99285; 70450; 73110; 73130; 72125; 96372; J1885; J0360